=== PATIENT | female | born 1955 | race Caucasian/White ===

== ENCOUNTER 2017-09-26 11:32 | Outpatient (CLI) | payer MEDICARE, MEDICAID ==
--- NOTE | 2017-09-26 14:04 | PET ---
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 The patient is status post chemoradiation. She has received 3 cycles of weekly Cisplatin prior to it being disconti nued secondary to renal insufficiency. Brief interruption of radiation secondary to hospitalization. Exam is requested for restaging and spiculated nodule in the right lower lobe. Last chemotherapy w as in November 2016. TECHNIQUE: PET scanning with CT attenuation correction was performed from the base of the brain to the proximal thighs following the intravenous administration of 9 mCi [id number] in the right wrist. COMPARISON: None. FINDINGS: No hypermetabolic lymph nodes are seen in the neck, cyst, axilla, abdomen, pelvis, or inguinal region s. No hypermetabolic pulmonary nodules, liver, adrenal, or skeletal lesions are seen. There is a 6 mm parenchymal nodule in the right lower lobe which does not demonstrate abnormal FDG lo calization and has an SUV of 0.4. There is scarring in the left lower lung. There is physiologic activity in the GI and tracts, heart, and the visualized portions of the brai n. The CT scan used for attenuation correction demonstrates no evidence of pleural effusion or ascites. There is sigmoid diverticulosis. IMPRESSION: No evidence of metastatic disease. POS: [facility]
== END 2017-09-26 11:33 | disposition home or self-care (01) ==
LOC: PET 11:32
PROVIDERS: ATTEND Nurse Practitioner
DX: R91.1 Solitary pulmonary nodule (principal); Z85.44 Personal history of malignant neoplasm of other female genital organs
CPT/HCPCS: 78815; A9552

== ENCOUNTER 2018-09-18 15:15 | Outpatient (CLI) | payer MEDICARE ==
--- NOTE | 2018-09-18 15:41 | RAD ---
TWO VIEWS CHEST: Comparison: 08-05-18 FINDINGS: Two views of the chest shows a normal sized cardiomediastinal silhouette. Increased interstitial sierra ings are present. There is a small area of increased density in the mid left lung. This could represe nt atelectasis or an infiltrate. IMPRESSION: Left pulmonary atelectasis versus infiltrates. POS: [facility]
== END 2018-09-18 15:16 | disposition home or self-care (01) ==
LOC: RAD 15:15
PROVIDERS: ATTEND Internal Medicine Pulmonary Disease
DX: R06.00 Dyspnea, unspecified (principal)
CPT/HCPCS: 71046

== ENCOUNTER 2018-10-17 08:56 | Outpatient (CLI) | payer MEDICARE, MEDICAID ==
--- NOTE | 2018-10-18 10:46 | PFT ---
PATIENT HISTORY: HEIGHT: 64 IN WEIGHT: 183 SMOKER: NO HOW LON YR PACKS PER DAY: 1 PRODUCTIVE COUGH: LUNG DISEASE: PHYSICIAN INTERPRETATION FINAL REPORT: FEV1 0.56 liters 22% predicted. FVC is 1.33 liters 40% predicted. There is no significant improvement in FEV1 after Bronchodilatation. The FEV1/FVC ratio is 42. The DLCO is 5.88 25% Residual volume is 3.12, 163%. Total Lung capacity is normal. moderate obstructive defect IMPRESSION: This is a severe obstructive pulmonary impairment without evidence of reversibility. Severe air trapping is present. Gas exchange is severely compromised. MVV is appropriate for her decreased FEV1. 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
== END 2018-10-17 08:57 | disposition home or self-care (01) ==
LOC: CP 08:56
PROVIDERS: ATTEND Internal Medicine Pulmonary Disease
DX: J44.9 Chronic obstructive pulmonary disease, unspecified (principal)
CPT/HCPCS: 94060; 94727; 94729

== ENCOUNTER 2020-03-16 13:05 | Outpatient (CLI) | payer MEDICARE, MEDICAID ==
[~2020-03-16 13:05] MED LIST: Iopamidol 370 76% 100 ML VIAL ONE
--- NOTE | 2020-03-16 14:28 | CT ---
CT CHEST WITH CONTRAST CLINICAL INDICATION: Shortness of breath and history of COPD. History of cancer of the vulva. COMPARISON: CTA thorax on 08/04/2018 FINDINGS: Aorta: Vascular calcifications are seen in the aortic arch. Thoracic aorta is normal in caliber. Lungs: There are linear and patchy parenchymal densities seen in the region of the lingula with retic ulonodular densities also present in the peripheral aspect of the left upper lobe and right lower lobe. Again noted are linear densities at the left lung base suggesting scarring. Parenchymal lung ch anges are overall similar to the prior exam and likely to chronic lung changes. No pleural effusion is evident. There is evidence of bronchiectasis in the lower lobes bilaterally. Mediastinum: No enlarged lymph nodes are seen by CT size criteria. Thyroid gland: There has been interval development of a 1.3 cm hypodense nodule in the inferior aspec t left lobe of thyroid and thyroid isthmus with a few subcentimeter hypodense nodules seen in each lobe of the thyroid gland. Osseous structures: Degenerative changes are seen in the thoracic spine. No suspicious lytic or scler otic osseous lesions are identified. Chest wall: No abnormality visualized. Upper abdomen: There is diminished attenuation of the visualized liver likely reflective of fatty inf iltration. IMPRESSION: 1. Findings most suggestive of chronic lung changes predominantly on the left with linear areas of sc arring in the left upper and lower lobes which were also present on the prior exam. Minimal reticulonodular densities are seen in the left upper and right lower lobe which could be related to i nfectious or inflammatory process. 2. Bronchiectasis at each lung base. 3. Interval development of a dominant hypodense nodule inferior aspect left lobe of thyroid gland. [facility] ultrasound is recommended for further evaluation. 4. Fatty infiltration visualized liver.
== END 2020-03-16 13:06 | disposition home or self-care (01) ==
LOC: BICCT 13:05
PROVIDERS: ATTEND Obstetrics & Gynecology Gynecologic Oncology
DX: C51.9 Malignant neoplasm of vulva, unspecified (principal); J44.9 Chronic obstructive pulmonary disease, unspecified; I50.9 Heart failure, unspecified; J98.4 Other disorders of lung; J47.9 Bronchiectasis, uncomplicated; E04.1 Nontoxic single thyroid nodule; K76.0 Fatty (change of) liver, not elsewhere classified
CPT/HCPCS: 71260; 82565; Q9967

== ENCOUNTER 2020-05-28 10:09 | Outpatient (CLI) | payer MEDICARE, MEDICAID ==
--- NOTE | 2020-05-28 11:13 | MMO ---
Bilateral MAMMO Bilat Screen [facility]. CLINICAL HISTORY: Patient is 65 years old and is seen for screening. The patient has no family history of breast cancer. The patient has a history of vulva cancer. VIEWS: The views performed were: bilateral craniocaudal with tomosynthesis and bilateral mediolateral oblique with tomosynthesis. This study has been interpreted with the assistance of computer-aided detection. MAMMOGRAM FINDINGS: The breasts are heterogeneously dense, which could obscure a lesion on mammography. Finding 1: There are stable benign appearing calcifications seen in both breasts. Finding 2: There is an intramammary lymph node measuring 3 millimeters seen in the lower-inner region of the left breast. There are no suspicious masses, suspicious calcifications, or new areas of architectural distortion. IMPRESSION: THERE IS NO MAMMOGRAPHIC EVIDENCE OF MALIGNANCY. A ROUTINE FOLLOW-UP MAMMOGRAM IN 1 YEAR IS RECOMMENDED. THE RESULTS OF THIS EXAM WERE SENT TO THE PATIENT. ACR BI-RADS Category 2 - Benign finding MAMMOGRAPHY NOTE: 1. A negative mammogram report should not delay a biopsy if a dominant of clinically suspicious mass is present. 2. Approximately 10% to 15% of breast cancers are not detected by mammography. 3. Adenosis and dense breasts may obscure an underlying neoplasm. Reported by: EARNEST BARAJAS MD Electonically Signed: [id number]
--- NOTE | 2020-05-28 11:14 | BD ---
EXAM: Bone densitometry using DEXA HISTORY: 64 yo female. Screening for postmenopausal osteoporosis FINDINGS: L1--bone mineral density 0.905 g/sq cm; T score -0.8 ; Z score 0.7 L2--bone mineral density 0.918 g/sq cm; T score -1.0 ; Z score 0.6 L3--bone mineral density 0.781 g/sq cm; T score -2.8 ; Z score -1.1 L4--bone mineral density 0.598 g/sq cm; T score -4.2 ; Z score -2.4 Total L1-L4--bone mineral density 0.791 g/sq cm; T score -2.3 ; Z score -0.7 Left femoral neck--bone mineral density0.66; T score -2.0 ; Z score -0.6 Total proximal left femur--bone mineral density 0.949; T score 0.1 ; Z score 1. The 10 year fracture risk for a major osteoporotic fracture is 9.5% and for a hip fracture is 1.2%. IMPRESSION: Osteopenia
== END 2020-05-28 10:10 | disposition home or self-care (01) ==
LOC: BICMAMMO 10:09
PROVIDERS: ATTEND Family Medicine
DX: Z12.31 Encounter for screening mammogram for malignant neoplasm of breast (principal); Z13.820 Encounter for screening for osteoporosis; N95.9 Unspecified menopausal and perimenopausal disorder; M85.89 Other specified disorders of bone density and structure, multiple sites; Z85.44 Personal history of malignant neoplasm of other female genital organs
CPT/HCPCS: 77063; 77067; 77080

== ENCOUNTER 2021-04-16 10:55 | Outpatient (CLI) | payer MEDICARE | END 2021-04-16 10:56 | disposition home or self-care (01) | LOC: BICRAD 10:55 | PROVIDERS: ATTEND Internal Medicine Pulmonary Disease | DX: R06.00 Dyspnea, unspecified (principal); I70.90 Unspecified atherosclerosis | CPT/HCPCS: 71046 ==

== ENCOUNTER 2022-02-01 10:39 | Inpatient (IN) | payer MEDICARE ==
[2022-02-01] MEDS ORDERED: Azithromycin 500 MG VIAL ONE (10:47)
[2022-02-01] MEDS ORDERED: cefTRIAXone\\ROCEPHIN 2 GM VIAL ONE (10:47)
[2022-02-01] MEDS ORDERED: methylPREDNISolone Sod Succ/PF 125 MG/2 ML VIAL ONE (10:52)
[2022-02-01] MEDS ORDERED: Magnesium 2 GM/50 ML BAG (IN WATER) ONE (10:52)
[2022-02-01 11:25] LABS: #Lymphocytes 1.5 thou/uL (1.20-3.40); #Monocytes 1.5 thou/uL (0.11-0.59); #Neutrophils 11.7 thou/uL (1.40-6.50); %Basophils 0.1 % (0.0-1.0); %Eosinophils 0.2 % (0.0-10.0); %Lymphocytes 10.3 % (21.0-51.0); %Monocytes 9.8 % (0.0-10.0); %Neutrophils 79.5 % (42.0-75.0); Hemoglobin 12.8 g/dL (12.0-16.0); Mean Corpuscular HGB CONC 31.5 g/dL (32.0-36.0); Mean Corpuscular Hemoglobin 31.3 pg (27.0-31.0); Mean Corpuscular Volume 99.4 fL (78.0-98.0); Mean Platelet Volume 6.6 fL (7.4-10.4); Platelet Count 266 thou/uL (130-400); RBC Distribution Width 12.1 % (11.5-14.5); Red Blood Cell (RBC) Count 4.09 mill/uL (4.20-5.40); White Blood Cell (WBC) Count 14.8 thou/uL (4.8-10.8)
[2022-02-01 11:41] LABS: ALT (SGPT) 109 U/L (8-55); AST (SGOT) 47 U/L (5-34); Albumin 3.5 g/dL (3.4-4.8); Alkaline Phosphatase 75 U/L (40-110); BUN (Urea Nitrogen) 10 mg/dL (9.8-20.1); Bilirubin, Total 1.1 mg/dL (0.2-1.2); Calc. Creatinine Clearance 0 mL/min (70-130); Calcium 9.1 mg/dL (7.8-10.44); Globulin 2.9 g/dL (2.4-3.5); Glucose 156 mg/dL (80-115); INR-International Normal Ratio 1.1; PTT 30.6 sec (22.9-36.1); Protein, Total 6.4 g/dL (5.8-8.1); Prothrombin Time 13.8 sec (12.0-14.7)
[2022-02-01 11:50] LABS: Anion Gap 16 mmol/L (10-20); Carbon Dioxide 35 mmol/L (23-31); Chloride 95 mmol/L (98-107); Potassium 4.4 mmol/L (3.5-5.1); Sodium 142 mmol/L (136-145)
[2022-02-01] MEDS ORDERED: Albuterol Sulfate 2.5 mg/3 ml Neb ONE (12:40)
[2022-02-01 12:51] LABS: Actual Bicarbonate (HCO3a) 37.2 mEq/L (22-28); Analyzer IN Cardio ER; Base Excess (BEa) 6.3 mEq/L (-2.0 to +3.0); Calcium, Ionized (arterial) 1.16 mmol/L (1.12-1.30); Carboxyhemoglobin (COHb) 1.9 gm% (0.0-3.0); Hemoglobin (Hb) 13.6 g/dL (12.0-16.0); O2 Tension (PaO2), arterial 76.2 mmHg (> 80.0); Potassium - ABG Lab 4.17 mmol/L (3.70-5.30)
[2022-02-01 13:07] LABS: CO2 Tension 90.6 mmHg (35.0-45.0); Puncture Site RRA; pH, Arterial 7.23 (7.35-7.45)
[2022-02-01] MEDS ORDERED: Acetaminophen 650 MG Suppository PR PRN (13:12)
[2022-02-01] MEDS ORDERED: Senokot S 8.6-50 MG TAB PO PRN (13:12)
[2022-02-01] MEDS ORDERED: Acetaminophen 325 MG TAB PO PRN (13:12)
[2022-02-01] MEDS ORDERED: Ondansetron ODT 4 MG TAB PO PRN (13:12)
[2022-02-01] MEDS ORDERED: Ondansetron PF 4 MG/2 ML Vial IVP PRN (13:12)
[2022-02-01] MEDS ORDERED: Albuterol Sulfate 2.5 mg/3 ml Neb NEB PRN (13:12)
[2022-02-01] MEDS ORDERED: Bisacodyl 5 MG TAB PO PRN (13:12)
[2022-02-01 14:51] LABS: SARS-CoV-2 NAA Rapid Test Not Detected (NotDetected)
[2022-02-01] MEDS: Heparin 5,000 UNITS/ML VIAL SC SCH ×2 (15:25→19:53)
[2022-02-01 17:29] LABS: Actual Bicarbonate (HCO3v) 30 mEq/L (22-28); Analyzer IN Cardio ER; Base Excess 3.4 mEq/L (-2.0 to +3.0); Calcium, Ionized (venous) 1.01 mmol/L (1.16-1.32); Chloride (VBG) 98 mmol/L (98-106); Hemoglobin (Hb) 13.2 g/dL (11.7-16.0); Potassium (VBG) 4.01 mmol/L (3.70-5.30); Sodium 137.1 mmol/L (133-146); pH (venous) 7.36 (7.32-7.43)
[2022-02-01 17:38] LABS: Bacteria/HPF 4+ HPF (None Seen); Bilirubin Negative (Negative); Blood, Urine Trace (Negative); Clarity Turbid (Clear); Glucose, Urine (Dipstick) 30 mg/dL (Negative); Ketone, Urine Negative (Negative); Leukocyte Negative Leu/uL (Negative); Nitrite Negative (Negative); Protein, Urine (Dipstick) 30 mg/dL (Neg-Trace); Specific Gravity, Urine 1.015 (1.002-1.036); Squamous Epithelial 0-3 HPF (0-3); Urobilinogen 3 mg/dL (Less than 2); WBC/HPF 0-3 HPF (0-3)
[2022-02-01 18:17] VITALS: BMI 32.1
[2022-02-01] MEDS: guaiFENesin 200 MG TAB PO SCH ×2 (18:20→19:00)
[2022-02-01] MEDS ORDERED: Mometasone 200 MCG/Formoterol 5 MCG 120 PUFF INHALER INH SCH (18:30)
[2022-02-01] MEDS: methylPREDNISolone Sod Succ 40 MG VIAL IVP SCH (19:00)
[2022-02-01] MEDS ORDERED: ALPRAZolam 1 MG TAB PO SCH (19:30)
[2022-02-01] MEDS: Famotidine 20 MG TAB PO SCH (19:54)
[2022-02-02] MEDS: guaiFENesin 200 MG TAB PO SCH ×6 (00:14→20:09)
[2022-02-02] MEDS: methylPREDNISolone Sod Succ 40 MG VIAL IVP SCH ×3 (00:14→20:07)
[2022-02-02 03:59] LABS: #Monocytes 0.4 thou/uL (0.11-0.59); #Neutrophils 8.4 thou/uL (1.40-6.50); %Basophils 0.1 % (0.0-1.0); %Eosinophils 0.1 % (0.0-10.0); %Lymphocytes 9.9 % (21.0-51.0); %Monocytes 4.5 % (0.0-10.0); %Neutrophils 85.4 % (42.0-75.0); Hemoglobin 11.9 g/dL (12.0-16.0); Mean Corpuscular HGB CONC 31.8 g/dL (32.0-36.0); Mean Corpuscular Hemoglobin 31.6 pg (27.0-31.0); Mean Corpuscular Volume 99.4 fL (78.0-98.0); Mean Platelet Volume 6.6 fL (7.4-10.4); Platelet Count 236 thou/uL (130-400); RBC Distribution Width 11.9 % (11.5-14.5); Red Blood Cell (RBC) Count 3.76 mill/uL (4.20-5.40); White Blood Cell (WBC) Count 9.9 thou/uL (4.8-10.8)
[2022-02-02 04:24] LABS: Anion Gap 14 mmol/L (10-20); BUN (Urea Nitrogen) 13 mg/dL (9.8-20.1); Calc. Creatinine Clearance 91 mL/min (70-130); Calcium 9.3 mg/dL (7.8-10.44); Carbon Dioxide 36 mmol/L (23-31); Chloride 97 mmol/L (98-107); Glucose 172 mg/dL (80-115); Potassium 4.2 mmol/L (3.5-5.1); Sodium 143 mmol/L (136-145)
[2022-02-02] MEDS: Potassium Chloride 10 MEQ TAB PO SCH (08:39)
[2022-02-02] MEDS: Furosemide 20 MG TAB PO SCH (08:39)
[2022-02-02] MEDS: cefTRIAXone\\ROCEPHIN 1 GM in Sodium Chloride 0.9% 100 ML IVPB SCH (08:39)
[2022-02-02] MEDS: Famotidine 20 MG TAB PO SCH ×2 (08:39→20:07)
[2022-02-02] MEDS: Heparin 5,000 UNITS/ML VIAL SC SCH ×3 (08:39→20:08)
[2022-02-02] MEDS: Amlodipine 5 MG TAB PO SCH (08:39)
[2022-02-02] MEDS ORDERED: Non-Formulary Item 1 EACH (Budesonide-Formoterol [Symbicort 160-4.5] 160 MG/4.5 MG Aer) INH SCH (09:00)
[2022-02-02] MEDS: Azithromycin 500 MG in Sodium Chloride 0.9% 250 ML 250 ML IVPB SCH (12:47)
[2022-02-02] MEDS: ALPRAZolam 1 MG TAB PO PRN ×2 (12:48→20:07)
[2022-02-02] MEDS: Mometasone 200 MCG/Formoterol 5 MCG 120 PUFF INHALER INH SCH (18:30)
[2022-02-03] MEDS: guaiFENesin 200 MG TAB PO SCH ×7 (00:12→23:00)
[2022-02-03 03:38] LABS: #Lymphocytes 1.2 thou/uL (1.20-3.40); #Monocytes 0.5 thou/uL (0.11-0.59); #Neutrophils 10.2 thou/uL (1.40-6.50); %Eosinophils 0.1 % (0.0-10.0); %Lymphocytes 10.3 % (21.0-51.0); %Monocytes 4.1 % (0.0-10.0); %Neutrophils 85.5 % (42.0-75.0); Hemoglobin 12.3 g/dL (12.0-16.0); Mean Corpuscular Hemoglobin 30.9 pg (27.0-31.0); Mean Corpuscular Volume 99.8 fL (78.0-98.0); Mean Platelet Volume 6.7 fL (7.4-10.4); Platelet Count 307 thou/uL (130-400); RBC Distribution Width 12.1 % (11.5-14.5); Red Blood Cell (RBC) Count 3.96 mill/uL (4.20-5.40)
[2022-02-03 03:58] LABS: Anion Gap 14 mmol/L (10-20); BUN (Urea Nitrogen) 21 mg/dL (9.8-20.1); Calc. Creatinine Clearance 83 mL/min (70-130); Calcium 9.3 mg/dL (7.8-10.44); Carbon Dioxide 37 mmol/L (23-31); Chloride 94 mmol/L (98-107); Glucose 209 mg/dL (80-115); Potassium 4.1 mmol/L (3.5-5.1); Sodium 141 mmol/L (136-145)
[2022-02-03] MEDS: Mometasone 200 MCG/Formoterol 5 MCG 120 PUFF INHALER INH SCH ×2 (06:45→19:39)
[2022-02-03] MEDS: cefTRIAXone\\ROCEPHIN 1 GM in Sodium Chloride 0.9% 100 ML IVPB SCH (09:07)
[2022-02-03] MEDS: Furosemide 20 MG TAB PO SCH (09:07)
[2022-02-03] MEDS: Famotidine 20 MG TAB PO SCH ×2 (09:07→21:12)
[2022-02-03] MEDS: Potassium Chloride 10 MEQ TAB PO SCH (09:07)
[2022-02-03] MEDS: Amlodipine 5 MG TAB PO SCH (09:07)
[2022-02-03] MEDS: Heparin 5,000 UNITS/ML VIAL SC SCH ×3 (09:08→21:11)
[2022-02-03] MEDS: methylPREDNISolone Sod Succ 40 MG VIAL IVP SCH ×2 (09:08→21:12)
[2022-02-03] MEDS: ALPRAZolam 1 MG TAB PO PRN ×2 (09:09→19:01)
[2022-02-03] MEDS: Azithromycin 500 MG in Sodium Chloride 0.9% 250 ML 250 ML IVPB SCH (12:17)
[2022-02-04] MEDS: guaiFENesin 200 MG TAB PO SCH ×2 (02:01→06:53)
[2022-02-04 06:02] LABS: BUN (Urea Nitrogen) 21 mg/dL (9.8-20.1); Calc. Creatinine Clearance 99 mL/min (70-130)
[2022-02-04 06:03] LABS: Glucose 121 mg/dL (80-115)
[2022-02-04 06:12] LABS: Anion Gap 15 mmol/L (10-20); Carbon Dioxide 38 mmol/L (23-31); Chloride 94 mmol/L (98-107); Potassium 4.3 mmol/L (3.5-5.1); Sodium 143 mmol/L (136-145)
[2022-02-04 06:21] LABS: Band 2 % (5-11); Hemoglobin 12.4 g/dL (12.0-16.0); Hypochromia SLIGHT = 6-15 cells (100X) (0-5/hpf); Lymphocytes 17 % (21-51); MDiff Complete? YES; Macrocytosis SLIGHT = 6-15 cells (100X) (0-5/hpf); Mean Corpuscular HGB CONC 31.3 g/dL (32.0-36.0); Mean Corpuscular Hemoglobin 30.9 pg (27.0-31.0); Mean Corpuscular Volume 98.6 fL (78.0-98.0); Mean Platelet Volume 6.5 fL (7.4-10.4); Monocytes 4 % (0-10); Myelocyte 1 % (0-0); Neutrophil 76 % (42-75); Ovalocytes SLIGHT = 2-5 cells (100X) (0-1/hpf); Platelet Count 347 thou/uL (130-400); Platelet Morphology Comment Appears Adequate; Polychromasia SLIGHT = 2-3 cells (100X) (0-2/hpf); RBC Distribution Width 11.9 % (11.5-14.5); Red Blood Cell (RBC) Count 4.02 mill/uL (4.20-5.40); Stomatocytes SLIGHT = 2-5 cells (100X) (0-1/hpf); White Blood Cell (WBC) Count 14.3 thou/uL (4.8-10.8)
[2022-02-04] MEDS: Mometasone 200 MCG/Formoterol 5 MCG 120 PUFF INHALER INH SCH (07:45)
[2022-02-04] MEDS ORDERED: Potassium Chloride 10 MEQ TAB PO SCH (08:00)
[2022-02-04] MEDS: ALPRAZolam 1 MG TAB PO PRN (08:59)
[2022-02-04] MEDS: Famotidine 20 MG TAB PO SCH (08:59)
[2022-02-04] MEDS: Furosemide 20 MG TAB PO SCH (08:59)
[2022-02-04] MEDS: Amlodipine 5 MG TAB PO SCH (08:59)
[2022-02-04] MEDS ORDERED: Azithromycin 250 MG TAB PO SCH (09:00)
[2022-02-04] MEDS: Heparin 5,000 UNITS/ML VIAL SC SCH (09:00)
[2022-02-04] MEDS: methylPREDNISolone Sod Succ 40 MG VIAL IVP SCH (09:00)
[2022-02-04] MEDS: cefTRIAXone\\ROCEPHIN 1 GM in Sodium Chloride 0.9% 100 ML IVPB SCH (09:00)
[2022-02-04 09:10] VITALS: TEMP 98
[2022-02-04 12:43] VITALS: BP 152/92
[2022-02-04] MEDS ORDERED: Cefuroxime Axetil 250 MG TAB PO SCH (21:00)
[2022-02-05] MEDS ORDERED: predniSONE 20 MG TAB PO SCH (08:00)
== END 2022-02-04 13:24 | disposition home or self-care (01) | DRG 871 ==
LOC: ERS 10:39 → ERHOLD 13:13 → IMCU/EMU 18:21 → MSONC 02-03 13:21
PROVIDERS: ADMIT Internal Medicine; ATTEND Internal Medicine
PROC: 3E03329 Introduction of Other Anti-infective into Peripheral Vein, Percutaneous Approach (ICD-10-PCS; principal; 2022-02-01)
PROC: 5A09457 Assistance with Respiratory Ventilation, 24-96 Consecutive Hours, Continuous Positive Airway Pressure (ICD-10-PCS; 2022-02-01)
DX: A41.9 Sepsis, unspecified organism (principal); J96.21 Acute and chronic respiratory failure with hypoxia; J96.22 Acute and chronic respiratory failure with hypercapnia; J44.1 Chronic obstructive pulmonary disease with (acute) exacerbation; I50.32 Chronic diastolic (congestive) heart failure; I11.0 Hypertensive heart disease with heart failure; Z20.822 Contact with and (suspected) exposure to COVID-19; E78.5 Hyperlipidemia, unspecified; C52 Malignant neoplasm of vagina; F41.1 Generalized anxiety disorder; E66.9 Obesity, unspecified; Z99.81 Dependence on supplemental oxygen; Z79.51 Long term (current) use of inhaled steroids; Z79.52 Long term (current) use of systemic steroids; Z79.899 Other long term (current) drug therapy; Z90.49 Acquired absence of other specified parts of digestive tract; Z98.51 Tubal ligation status; Z87.891 Personal history of nicotine dependence; Z68.31 Body mass index [BMI] 31.0-31.9, adult
CPT/HCPCS: 36415; 36416; 36600; 71045; 80048; 80053; 81003; 81015; 82805; 83605; 83880; 84145; 84484; 85025; 85610; 85730; 87040; 87070; 87086; 87205; 87633; 93005; 94640; 94644; 94660; 94664; 94760; 96365; 96366; 96368; 96375; J0456; J0696; J1644; J2920; J2930; J3475; J3490; J7050; J7611; J7620

== ENCOUNTER 2022-10-11 11:26 | Outpatient (CLI) | payer MEDICARE, MEDICAID | END 2022-10-11 11:27 | disposition home or self-care (01) | LOC: RAD 11:26 | PROVIDERS: ATTEND Internal Medicine Critical Care Medicine | DX: R06.00 Dyspnea, unspecified (principal) | CPT/HCPCS: 71046 ==

== ENCOUNTER 2023-02-08 07:19 | Inpatient (IN) | payer MEDICARE ==
[2023-02-08] MEDS ORDERED: Ipratropium Bromide 2.5 ml Neb ONE (08:01)
[2023-02-08] MEDS ORDERED: methylPREDNISolone Sod Succ/PF 125 MG/2 ML VIAL ONE (08:05)
[2023-02-08] MEDS ORDERED: Magnesium 2 GM/50 ML BAG (IN WATER) ONE (08:06)
[2023-02-08] MEDS ORDERED: Cefepime 2 GM VIAL ONE (08:06)
[2023-02-08 08:11] LABS: Actual Bicarbonate (HCO3a) 44.8 mEq/L (22-28); Analyzer IN Cardio ER; Base Excess (BEa) 16.3 mEq/L (-2.0 to +3.0); Calcium, Ionized (arterial) 1.11 mmol/L (1.12-1.30); Hematocrit-ABG 42 % (36.0-47.0); Hemoglobin (Hb) 14.3 g/dL (12.0-16.0); Potassium - ABG Lab 3.51 mmol/L (3.70-5.30); pH, Arterial 7.411 (7.35-7.45)
[2023-02-08 08:16] LABS: Puncture Site RRA
[2023-02-08 08:32] LABS: Hemoglobin 14.6 g/dL (12.0-16.0); Mean Corpuscular HGB CONC 30.9 g/dL (32.0-36.0); Mean Corpuscular Hemoglobin 30.7 pg (27.0-31.0); Mean Corpuscular Volume 99.2 fl (78.0-98.0); Mean Platelet Volume 9.2 fL (7.4-10.4); Platelet Count 235 10x3/uL (130-400); RBC Distribution Width 12.7 % (11.5-14.5); Red Blood Cell (RBC) Count 4.76 mill/uL (4.20-5.40); White Blood Cell (WBC) Count 25.4 10x3/uL (4.8-10.8)
[2023-02-08 08:33] LABS: Delete Auto Diff?? YES; Manual Diff?? YES
[2023-02-08 08:48] LABS: Prothrombin Time 13.2 sec (12.0-14.7)
[2023-02-08 08:49] LABS: PTT 23.6 sec (22.9-36.1)
[2023-02-08 08:54] LABS: ALT (SGPT) 37 U/L (8-55); AST (SGOT) 31 U/L (5-34); Albumin 3.7 g/dL (3.4-4.8); Alkaline Phosphatase 71 U/L (40-110); BUN (Urea Nitrogen) 19 mg/dL (9.8-20.1); Band 6 % (5-11); Bilirubin, Total 0.6 mg/dL (0.2-1.2); CK (CPK) 25 U/L (29-168); Calc. Creatinine Clearance 0 mL/min (70-130); CellaVision Operator ID LAB.GE; Estimated GFR 87; Globulin 3.7 g/dL (2.4-3.5); Glucose 121 mg/dL (80-115); Lipase 211 U/L (8-78); Lymphocytes 3 % (21-51); Metamyelocyte 4 % (0-0); Myelocyte 2 % (0-0); Neutrophil 79 % (42-75); Platelet Adequacy Comment Platelets Normal; Polychromasia SLIGHT = 2-3 cells HPF (0-2); Protein, Total 7.4 g/dL (5.8-8.1); Reactive Lymphocytes 6 % (0-10); Total Cell Count 100; Toxic Granulation SLIGHT
[2023-02-08 09:05] LABS: Anion Gap 20 mmol/L (10-20); Carbon Dioxide 41 mmol/L (23-31); Chloride 89 mmol/L (98-107); Potassium 3.7 mmol/L (3.5-5.1); Sodium 146 mmol/L (136-145)
[2023-02-08] MEDS ORDERED: Vancomycin 1 GM/200 ML (FROZEN) BAG ONE (09:31)
[2023-02-08] MEDS ORDERED: Ondansetron ODT 4 MG TAB PO PRN (10:03)
[2023-02-08] MEDS ORDERED: Acetaminophen 325 MG TAB PO PRN (10:03)
[2023-02-08 11:53] LABS: Troponin I Less than 0.010 ng/mL (< 0.028)
[2023-02-08 14:16] VITALS: BMI 29.0
[2023-02-08] MEDS ORDERED: Furosemide 20 MG/2 ML VIAL SLOW IVP SCH (14:30)
[2023-02-08 14:40] LABS: Magnesium 2.3 mg/dL (1.6-2.6); Phosphorus 3.2 mg/dL (2.3-4.7)
[2023-02-08] MEDS: Ipratropium/Albuterol 3 ML NEB NEB SCH ×3 (14:53→23:51)
[2023-02-08] MEDS ORDERED: ALPRAZolam 1 MG TAB PO SCH ×2 (16:20→21:00)
[2023-02-08 16:57] LABS: Troponin I Less than 0.010 ng/mL (< 0.028)
[2023-02-08] MEDS: Mometasone 200 MCG/Formoterol 5 MCG 120 PUFF INHALER INH SCH (18:50)
[2023-02-08] MEDS: Famotidine 20 MG TAB PO SCH (20:19)
[2023-02-08] MEDS: Cefepime 2 GM in Sodium Chloride 0.9% 100 ML IVPB SCH (20:20)
[2023-02-08] MEDS: methylPREDNISolone Sod Succ 40 MG VIAL IVP SCH (20:20)
[2023-02-09 04:44] LABS: Hemoglobin 12.2 g/dL (12.0-16.0); Mean Corpuscular HGB CONC 30.6 g/dL (32.0-36.0); Mean Corpuscular Hemoglobin 29.7 pg (27.0-31.0); Mean Corpuscular Volume 97.1 fl (78.0-98.0); Mean Platelet Volume 9.4 fL (7.4-10.4); Platelet Count 221 10x3/uL (130-400); RBC Distribution Width 12.7 % (11.5-14.5); Red Blood Cell (RBC) Count 4.11 mill/uL (4.20-5.40)
[2023-02-09 04:49] LABS: Delete Auto Diff?? YES
[2023-02-09] MEDS: ALPRAZolam 1 MG TAB PO SCH ×2 (05:45→21:17)
[2023-02-09 05:55] LABS: ALT (SGPT) 32 U/L (8-55); AST (SGOT) 22 U/L (5-34); Albumin 3.2 g/dL (3.4-4.8); Alkaline Phosphatase 56 U/L (40-110); BUN (Urea Nitrogen) 18 mg/dL (9.8-20.1); Bilirubin, Total 0.4 mg/dL (0.2-1.2); Calc. Creatinine Clearance 97 mL/min (70-130); Calcium 9.1 mg/dL (7.8-10.44); Estimated GFR 96; Glucose 130 mg/dL (80-115); Protein, Total 6.2 g/dL (5.8-8.1)
[2023-02-09 06:06] LABS: Chloride 96 mmol/L (98-107); Sodium 145 mmol/L (136-145)
[2023-02-09 06:09] LABS: Anion Gap 19 mmol/L (10-20); Carbon Dioxide 34 mmol/L (23-31)
[2023-02-09 07:19] LABS: CO2 Tension 72.2 mmHg (35.0-45.0); O2 Tension (PaO2), arterial 53.5 mmHg (> 80.0)
[2023-02-09] MEDS: Mometasone 200 MCG/Formoterol 5 MCG 120 PUFF INHALER INH SCH ×2 (07:34→18:39)
[2023-02-09] MEDS: Ipratropium/Albuterol 3 ML NEB NEB SCH ×4 (07:35→22:50)
[2023-02-09] MEDS ORDERED: Vancomycin 1.5 GRAM/300 ML BAG 1.5 GM in Premix Bag 1 BAG IVPB SCH (09:00)
[2023-02-09] MEDS: Cefepime 2 GM in Sodium Chloride 0.9% 100 ML IVPB SCH (09:38)
[2023-02-09] MEDS: Furosemide 20 MG/2 ML VIAL SLOW IVP SCH (09:39)
[2023-02-09] MEDS: Famotidine 20 MG TAB PO SCH ×2 (09:39→21:17)
[2023-02-09] MEDS: methylPREDNISolone Sod Succ 40 MG VIAL IVP SCH (09:39)
[2023-02-09] MEDS ORDERED: ALPRAZolam 1 MG TAB PO SCH (15:30)
[2023-02-09] MEDS: Cefuroxime 250 MG TAB PO SCH (21:17)
[2023-02-10 06:22] LABS: #Basophils 0.1 thou/uL (0.0-0.2); #Eosinphils 0.1 thou/uL (0.0-0.7); #Monocytes 0.5 thou/uL (0.11-0.59); #Neutrophils 8.8 thou/uL (1.40-6.50); %Basophils 0.4 % (0.0-1.0); %Eosinophils 0.8 % (0.0-10.0); %Lymphocytes 15.2 % (21.0-51.0); %Monocytes 4.4 % (0.0-10.0); %Neutrophils 74.7 % (42.0-75.0); Hemoglobin 12.8 g/dL (12.0-16.0); Mean Corpuscular HGB CONC 30.5 g/dL (32.0-36.0); Mean Corpuscular Hemoglobin 29.8 pg (27.0-31.0); Mean Corpuscular Volume 97.7 fl (78.0-98.0); Mean Platelet Volume 9.3 fL (7.4-10.4); Platelet Count 211 10x3/uL (130-400); RBC Distribution Width 13.1 % (11.5-14.5); Red Blood Cell (RBC) Count 4.29 mill/uL (4.20-5.40); White Blood Cell (WBC) Count 11.8 10x3/uL (4.8-10.8)
[2023-02-10 06:27] LABS: BUN (Urea Nitrogen) 17 mg/dL (9.8-20.1); Calc. Creatinine Clearance 97 mL/min (70-130); Calcium 9.2 mg/dL (7.8-10.44); Estimated GFR 96; Glucose 100 mg/dL (80-115)
[2023-02-10 06:35] LABS: Anion Gap 17 mmol/L (10-20); Carbon Dioxide 36 mmol/L (23-31); Chloride 94 mmol/L (98-107); Potassium 3.6 mmol/L (3.5-5.1); Sodium 143 mmol/L (136-145)
[2023-02-10] MEDS: Ipratropium/Albuterol 3 ML NEB NEB SCH ×4 (07:17→23:03)
[2023-02-10] MEDS: Mometasone 200 MCG/Formoterol 5 MCG 120 PUFF INHALER INH SCH ×2 (07:17→18:42)
[2023-02-10] MEDS: predniSONE 20 MG TAB PO SCH (08:54)
[2023-02-10] MEDS: ALPRAZolam 1 MG TAB PO SCH ×2 (08:54→20:05)
[2023-02-10] MEDS: Furosemide 20 MG/2 ML VIAL SLOW IVP SCH (08:55)
[2023-02-10] MEDS: Famotidine 20 MG TAB PO SCH ×2 (08:55→20:05)
[2023-02-10] MEDS: Cefuroxime 250 MG TAB PO SCH ×2 (08:59→20:05)
[2023-02-10] MEDS ORDERED: ALPRAZolam 1 MG TAB PO PRN (12:00)
[2023-02-11 04:29] LABS: #Eosinphils 0.1 thou/uL (0.0-0.7); #Monocytes 0.6 thou/uL (0.11-0.59); #Neutrophils 6.9 thou/uL (1.40-6.50); %Basophils 0.1 % (0.0-1.0); %Eosinophils 0.7 % (0.0-10.0); %Lymphocytes 17.4 % (21.0-51.0); %Monocytes 6.3 % (0.0-10.0); %Neutrophils 73.4 % (42.0-75.0); Hemoglobin 12.4 g/dL (12.0-16.0); Mean Corpuscular HGB CONC 31.2 g/dL (32.0-36.0); Mean Corpuscular Hemoglobin 30.2 pg (27.0-31.0); Mean Corpuscular Volume 97.1 fl (78.0-98.0); Platelet Count 211 10x3/uL (130-400); RBC Distribution Width 12.9 % (11.5-14.5); White Blood Cell (WBC) Count 9.4 10x3/uL (4.8-10.8)
[2023-02-11 04:54] LABS: BUN (Urea Nitrogen) 16 mg/dL (9.8-20.1); Calc. Creatinine Clearance 94 mL/min (70-130); Estimated GFR 94; Glucose 102 mg/dL (80-115)
[2023-02-11 05:03] LABS: Anion Gap 18 mmol/L (10-20); Carbon Dioxide 34 mmol/L (23-31); Chloride 94 mmol/L (98-107); Potassium 3.3 mmol/L (3.5-5.1); Sodium 143 mmol/L (136-145)
[2023-02-11] MEDS: Ipratropium/Albuterol 3 ML NEB NEB SCH (07:13)
[2023-02-11] MEDS: Mometasone 200 MCG/Formoterol 5 MCG 120 PUFF INHALER INH SCH (07:13)
[2023-02-11] MEDS ORDERED: Potassium Bicarbonate/Cit Ac 20 MEQ TAB PO SCH (08:30)
[2023-02-11] MEDS: Famotidine 20 MG TAB PO SCH (09:02)
[2023-02-11] MEDS: Furosemide 20 MG/2 ML VIAL SLOW IVP SCH (09:03)
[2023-02-11] MEDS: ALPRAZolam 1 MG TAB PO SCH (09:03)
[2023-02-11] MEDS: predniSONE 20 MG TAB PO SCH (09:03)
[2023-02-11] MEDS: Cefuroxime 250 MG TAB PO SCH (10:45)
[2023-02-11 14:01] VITALS: BP 133/85; TEMP 98.5
== END 2023-02-11 12:50 | disposition home or self-care (01) | DRG 189 ==
LOC: ERS 07:19 → ERHOLD 10:30 → 2NO 15:06
PROVIDERS: ADMIT Internal Medicine; ATTEND Hospitalist
PROC: 4A033R1 Measurement of Arterial Saturation, Peripheral, Percutaneous Approach (ICD-10-PCS; 2023-02-08)
PROC: 5A09357 Assistance with Respiratory Ventilation, Less than 24 Consecutive Hours, Continuous Positive Airway Pressure (ICD-10-PCS; principal; 2023-02-09)
DX: J96.21 Acute and chronic respiratory failure with hypoxia (principal); J44.1 Chronic obstructive pulmonary disease with (acute) exacerbation; I50.32 Chronic diastolic (congestive) heart failure; I11.0 Hypertensive heart disease with heart failure; E78.5 Hyperlipidemia, unspecified; J96.22 Acute and chronic respiratory failure with hypercapnia; Z98.51 Tubal ligation status; Z90.49 Acquired absence of other specified parts of digestive tract; Z87.891 Personal history of nicotine dependence
CPT/HCPCS: 36415; 36600; 71045; 80048; 80053; 82550; 82805; 83605; 83690; 83735; 83880; 84100; 84145; 84484; 85025; 85610; 85730; 87040; 87070; 87205; 93005; 93306; 94640; 94644; 94660; 94760; 96365; 96366; 96367; 96375; J0692; J1650; J1940; J2920; J2930; J3370; J3370-JW; J3475; J3490; J7512; J7611; J7620

== ENCOUNTER 2023-05-04 10:11 | Outpatient (CLI) | payer MEDICARE, MEDICAID | END 2023-05-04 10:12 | disposition home or self-care (01) | LOC: RAD 10:11 | PROVIDERS: ATTEND Internal Medicine Critical Care Medicine | DX: R06.00 Dyspnea, unspecified (principal); R91.8 Other nonspecific abnormal finding of lung field | CPT/HCPCS: 71046 ==

== ENCOUNTER 2023-12-18 09:22 | Inpatient (IN) | payer MEDICARE ==
[2023-12-18 10:25] LABS: #Basophils Less than 0.03 10x3/uL (0.0-0.2); %Basophils 0.2 % (0.0-1.0); %Eosinophils 2.2 % (0.0-10.0); %Lymphocytes 17.9 % (21.0-51.0); %Monocytes 6.1 % (0.0-10.0); %Neutrophils 73.4 % (42.0-75.0); Hematocrit 42.1 % (36.0-47.0); Hemoglobin 12.9 g/dL (12.0-16.0); Mean Corpuscular HGB CONC 30.6 g/dL (32.0-36.0); Mean Corpuscular Hemoglobin 30.9 pg (27.0-31.0); Mean Platelet Volume 8.9 fL (7.4-10.4); Platelet Count 199 10x3/uL (130-400); RBC Distribution Width 12.3 % (11.5-14.5); Red Blood Cell (RBC) Count 4.17 mill/uL (4.20-5.40)
[2023-12-18 10:32] LABS: Actual Bicarbonate (HCO3a) 42.3 mEq/L (22-28); Analyzer IN Cardio ER; Base Excess (BEa) 12.2 mEq/L (-2.0 to +3.0); Calcium, Ionized (arterial) 1.21 mmol/L (1.12-1.30); Carboxyhemoglobin (COHb) 1.2 gm% (0.0-3.0); Hematocrit-ABG 39 % (36.0-47.0); Hemoglobin (Hb) 13.1 g/dL (12.0-16.0); O2 Tension (PaO2), arterial 71.6 mmHg (> 80.0); Potassium - ABG Lab 3.93 mmol/L (3.70-5.30); pH, Arterial 7.301 (7.35-7.45)
[2023-12-18 10:33] LABS: CO2 Tension 87.8 mmHg (35.0-45.0); Puncture Site Yes
[2023-12-18 10:38] LABS: Globulin 3.7 g/dL (2.4-3.5)
[2023-12-18 10:42] LABS: ALT (SGPT) 20 U/L (8-55); AST (SGOT) 16 U/L (5-34); Albumin 3.2 g/dL (3.4-4.8); Alkaline Phosphatase 52 U/L (40-110); Anion Gap 15 mmol/L (10-20); BUN (Urea Nitrogen) 12 mg/dL (9.8-20.1); Bilirubin, Total 0.5 mg/dL (0.2-1.2); Calc. Creatinine Clearance 0 mL/min (70-130); Calcium 9.9 mg/dL (7.8-10.44); Carbon Dioxide 43 mmol/L (23-31); Chloride 90 mmol/L (98-107); Estimated GFR 97; Glucose 146 mg/dL (80-115); Potassium 4.1 mmol/L (3.5-5.1); Protein, Total 6.9 g/dL (5.8-8.1); Sodium 144 mmol/L (136-145)
[2023-12-18] MEDS ORDERED: LevoFLOXacin 750 mg/D5W 150 ml Premix Bag ONE (10:45)
[2023-12-18] MEDS ORDERED: Dexamethasone 10 MG/ML VIAL ONE (10:45)
[2023-12-18] MEDS ORDERED: HYDROcodone/Acetaminophen 10/325 mg Tablet ONE (10:45)
[2023-12-18] MEDS ORDERED: Magnesium 2 GM/50 ML BAG (IN WATER) ONE (10:45)
[2023-12-18] MEDS ORDERED: Albuterol 2.5 MG (3 mL) NEB ONE (10:45)
[2023-12-18] MEDS ORDERED: Ipratropium/Albuterol 3 ML NEB ONE (10:45)
[2023-12-18 11:47] LABS: Troponin I 0.029 ng/mL (< 0.028)
[2023-12-18] MEDS ORDERED: Clindamycin/D5W 900 MG in Premix 1 BAG IVPB SCH (12:00)
[2023-12-18] MEDS ORDERED: Ipratropium/Albuterol 3 ML NEB NEB PRN (12:53)
[2023-12-18] MEDS ORDERED: Acetaminophen 325 MG TAB PO PRN (12:53)
[2023-12-18] MEDS ORDERED: Albuterol 2.5 MG (3 mL) NEB NEB PRN (12:53)
[2023-12-18 13:35] VITALS: BMI 31.2
[2023-12-18] MEDS: ALPRAZolam 1 MG TAB PO PRN (18:28)
[2023-12-18] MEDS: Senokot S 8.6-50 MG TAB PO SCH (20:01)
[2023-12-18] MEDS: AcetaZOLAMIDE 250 MG TAB PO SCH (20:01)
[2023-12-18] MEDS: Montelukast Sodium 10 mg Tablet PO SCH (20:01)
[2023-12-18] MEDS: Mometasone 200 MCG/Formoterol 5 MCG 120 PUFF INHALER INH SCH (20:30)
[2023-12-19] MEDS ORDERED: Furosemide 20 MG TAB PO SCH (09:00)
[2023-12-19 09:12] LABS: Anion Gap 13 mmol/L (10-20); BUN (Urea Nitrogen) 17 mg/dL (9.8-20.1); Calc. Creatinine Clearance 86 mL/min (70-130); Calcium 9.8 mg/dL (7.8-10.44); Carbon Dioxide 41 mmol/L (23-31); Chloride 92 mmol/L (98-107); Estimated GFR 78; Glucose 155 mg/dL (80-115); Potassium 3.6 mmol/L (3.5-5.1); Sodium 142 mmol/L (136-145)
[2023-12-19] MEDS: Loratadine 10 MG TAB PO SCH (09:21)
[2023-12-19] MEDS: Amlodipine 5 MG TAB PO SCH (09:21)
[2023-12-19] MEDS: predniSONE 20 MG TAB PO SCH (09:21)
[2023-12-19] MEDS: Enoxaparin 40 MG (0.4 mL) SYRINGE SC SCH (09:21)
[2023-12-19] MEDS: LevoFLOXacin 750 MG TAB PO SCH (09:21)
[2023-12-19] MEDS: Polyethylene Glycol 3350 17 GM Packet PO SCH (09:21)
[2023-12-19 09:50] LABS: #Basophils Less than 0.03 10x3/uL (0.0-0.2); #Eosinphils Less than 0.03 10x3/uL (0.0-0.7); %Eosinophils 0.1 % (0.0-10.0); %Lymphocytes 17.6 % (21.0-51.0); %Monocytes 6.9 % (0.0-10.0); %Neutrophils 75.1 % (42.0-75.0); Hematocrit 37.6 % (36.0-47.0); Hemoglobin 11.5 g/dL (12.0-16.0); Mean Corpuscular HGB CONC 30.6 g/dL (32.0-36.0); Mean Corpuscular Hemoglobin 30.1 pg (27.0-31.0); Mean Corpuscular Volume 98.4 fL (78.0-98.0); Mean Platelet Volume 9.5 fL (7.4-10.4); Platelet Count 227 10x3/uL (130-400); RBC Distribution Width 12.2 % (11.5-14.5); Red Blood Cell (RBC) Count 3.82 mill/uL (4.20-5.40)
[2023-12-20 08:21] VITALS: BMI 31.0
[2023-12-20 10:09] VITALS: BP 142/87
[2023-12-20 12:16] VITALS: TEMP 97.4
== END 2023-12-20 14:40 | disposition home health service (06) | DRG 189 ==
LOC: ERS 09:22 → IMCU/EMU 12:52
PROVIDERS: ADMIT Family Medicine; ATTEND Internal Medicine
PROC: 4A033R1 Measurement of Arterial Saturation, Peripheral, Percutaneous Approach (ICD-10-PCS; principal; 2023-12-18)
PROC: 5A09357 Assistance with Respiratory Ventilation, Less than 24 Consecutive Hours, Continuous Positive Airway Pressure (ICD-10-PCS; 2023-12-19)
DX: J96.22 Acute and chronic respiratory failure with hypercapnia (principal); E87.3 Alkalosis; J44.1 Chronic obstructive pulmonary disease with (acute) exacerbation; I50.32 Chronic diastolic (congestive) heart failure; I11.0 Hypertensive heart disease with heart failure; J96.11 Chronic respiratory failure with hypoxia; E78.5 Hyperlipidemia, unspecified; K59.00 Constipation, unspecified; F39 Unspecified mood [affective] disorder; Z90.49 Acquired absence of other specified parts of digestive tract; Z98.51 Tubal ligation status; Z85.44 Personal history of malignant neoplasm of other female genital organs; S51.812A Laceration without foreign body of left forearm, initial encounter; I50.9 Heart failure, unspecified; J44.9 Chronic obstructive pulmonary disease, unspecified; W18.11XA Fall from or off toilet without subsequent striking against object, initial encounter; Z23 Encounter for immunization; Z87.891 Personal history of nicotine dependence; Z79.899 Other long term (current) drug therapy
CPT/HCPCS: 12034; 36415; 71045; 80048; 80053; 82805; 83605; 83880; 84484; 85025; 87040; 90471; 90715; 93005; 94660; 97139; J1100; J1650; J1956; J3475; J3490; J7512; J7611; J7620

== ENCOUNTER 2023-12-27 13:17 | Emergency (ER) | payer MEDICARE ==
[2023-12-27] MEDS ORDERED: Bacitracin 1 PK ONE (14:43)
== END 2023-12-27 15:27 | disposition home or self-care (01) ==
LOC: ERS 13:17
DX: R09.02 Hypoxemia (principal); Z48.00 Encounter for change or removal of nonsurgical wound dressing; I11.0 Hypertensive heart disease with heart failure; I50.9 Heart failure, unspecified; J44.9 Chronic obstructive pulmonary disease, unspecified; Z87.891 Personal history of nicotine dependence; Z79.899 Other long term (current) drug therapy
CPT/HCPCS: 99284

== ENCOUNTER 2024-01-03 10:59 | Inpatient (IN) | payer MEDICARE ==
[2024-01-03] MEDS ORDERED: Iopamidol-370 76% 500 ML MDV (1 ML CHARGE) ONE (11:07)
[2024-01-03] MEDS ORDERED: methylPREDNISolone Sod Succ/PF 125 MG/2 ML VIAL ONE (11:58)
[2024-01-03 12:07] LABS: #Basophils Less than 0.03 10x3/uL (0.0-0.2); %Basophils 0.2 % (0.0-1.0); %Eosinophils 1.3 % (0.0-10.0); %Lymphocytes 9.5 % (21.0-51.0); %Monocytes 5.1 % (0.0-10.0); %Neutrophils 83.1 % (42.0-75.0); Hematocrit 40.5 % (36.0-47.0); Hemoglobin 12.3 g/dL (12.0-16.0); Mean Corpuscular HGB CONC 30.4 g/dL (32.0-36.0); Mean Corpuscular Hemoglobin 30.9 pg (27.0-31.0); Mean Corpuscular Volume 101.8 fL (78.0-98.0); Mean Platelet Volume 9.7 fL (7.4-10.4); Platelet Count 151 10x3/uL (130-400); RBC Distribution Width 13.2 % (11.5-14.5); Red Blood Cell (RBC) Count 3.98 mill/uL (4.20-5.40)
[2024-01-03 12:07] LABS: Base Excess 16.8 mEq/L (-2.0 to +3.0); Calcium, Ionized (venous) 1.12 mmol/L (1.16-1.32); Chloride (VBG) 90 mmol/L (98-106); Hematocrit-VBG 39 % (36.0-47.0); Hemoglobin (Hb) 13.2 g/dL (11.7-16.1); Sodium 140 mmol/L (133-146); pH (venous) 7.299 (7.32-7.43)
[2024-01-03] MEDS ORDERED: Ipratropium/Albuterol 3 ML NEB ONE (12:27)
[2024-01-03 12:28] LABS: Troponin I 0.011 ng/mL (< 0.028)
[2024-01-03 12:56] LABS: ALT (SGPT) 24 U/L (8-55); AST (SGOT) 17 U/L (5-34); Alkaline Phosphatase 46 U/L (40-110); Anion Gap 13 mmol/L (10-20); BUN (Urea Nitrogen) 9 mg/dL (9.8-20.1); Bilirubin, Total 0.9 mg/dL (0.2-1.2); Calc. Creatinine Clearance 0 mL/min (70-130); Calcium 9.8 mg/dL (7.8-10.44); Chloride 91 mmol/L (98-107); Estimated GFR 97; Glucose 149 mg/dL (80-115); Lipase 47 U/L (8-78); Magnesium 1.5 mg/dL (1.6-2.6); Sodium 146 mmol/L (136-145)
[2024-01-03 13:02] LABS: Carbon Dioxide 44 mmol/L (23-31)
[2024-01-03] MEDS ORDERED: Furosemide 40 MG (4 mL) VIAL ONE (13:23)
[2024-01-03] MEDS ORDERED: Ondansetron ODT 4 MG TAB PO PRN (17:53)
[2024-01-03] MEDS: Ipratropium/Albuterol 3 ML NEB IPPB SCH (18:57)
[2024-01-03 19:36] LABS: Troponin I Less than 0.010 ng/mL (< 0.028)
[2024-01-03] MEDS: Magnesium 2 GM/50 ML(in water) 2 GM in Premix 1 BAG IVPB SCH (19:51)
[2024-01-03] MEDS: methylPREDNISolone Sod Succ 40 MG VIAL IVP SCH (19:51)
[2024-01-03] MEDS: ALPRAZolam 1 MG TAB PO PRN (20:44)
[2024-01-03] MEDS ORDERED: Electrolyte Replacement Protocol 1 EACH FS PRN (23:14)
[2024-01-03] MEDS ORDERED: Ipratropium/Albuterol 3 ML NEB NEB PRN (23:26)
[2024-01-04] MEDS: cefTRIAXone\\ROCEPHIN 1 GM in Sodium Chloride 0.9% 100 ML IVPB SCH (00:01)
[2024-01-04] MEDS: Ipratropium Bromide 2.5 ml Neb NEB SCH (01:19)
[2024-01-04 02:10] LABS: Troponin I Less than 0.010 ng/mL (< 0.028)
[2024-01-04 05:41] LABS: Base Excess 22.6 mEq/L (-2.0 to +3.0); Calcium, Ionized (venous) 1.09 mmol/L (1.16-1.32); Chloride (VBG) 88 mmol/L (98-106); Hematocrit-VBG 37 % (36.0-47.0); Hemoglobin (Hb) 12.6 g/dL (11.7-16.1); Potassium (VBG) 4.11 mmol/L (3.70-5.30); Sodium 140 mmol/L (133-146); pH (venous) 7.478 (7.32-7.43)
[2024-01-04 05:51] LABS: Actual Bicarbonate (HCO3v) 50.2 mEq/L (22-28)
[2024-01-04 06:08] LABS: Hemoglobin 11.5 g/dL (12.0-16.0); Mean Corpuscular HGB CONC 30.3 g/dL (32.0-36.0); Mean Corpuscular Hemoglobin 30.4 pg (27.0-31.0); Mean Corpuscular Volume 100.5 fL (78.0-98.0); Mean Platelet Volume 9.5 fL (7.4-10.4); Platelet Count 140 10x3/uL (130-400); RBC Distribution Width 12.6 % (11.5-14.5); Red Blood Cell (RBC) Count 3.78 mill/uL (4.20-5.40)
[2024-01-04 07:17] LABS: ALT (SGPT) 20 U/L (8-55); AST (SGOT) 13 U/L (5-34); Albumin 2.8 g/dL (3.4-4.8); Alkaline Phosphatase 42 U/L (40-110); Anion Gap 10 mmol/L (10-20); BUN (Urea Nitrogen) 13 mg/dL (9.8-20.1); Bilirubin, Total 0.6 mg/dL (0.2-1.2); Calc. Creatinine Clearance 113 mL/min (70-130); Calcium 9.7 mg/dL (7.8-10.44); Carbon Dioxide 49 mmol/L (23-31); Chloride 88 mmol/L (98-107); Estimated GFR 98; Globulin 2.9 g/dL (2.4-3.5); Glucose 141 mg/dL (80-115); Potassium 4.1 mmol/L (3.5-5.1); Protein, Total 5.7 g/dL (5.8-8.1); Sodium 143 mmol/L (136-145)
[2024-01-04 08:17] LABS: Band 4 % (5-11); Large Platelets 1.7 % (0-5); Lymphocytes 10 % (21-51); Metamyelocyte 2 % (0-0); Monocytes 1 % (0-10); Neutrophil 84 % (42-75); Platelet Adequacy Comment Platelets Normal; Polychromasia SLIGHT = 2-3 cells HPF (0-2); Smudge Cells 11.3 %; Stomatocytes SLIGHT = 2-5 cells HPF (0-1)
[2024-01-04] MEDS ORDERED: Furosemide 20 MG TAB PO SCH (09:00)
[2024-01-04] MEDS ORDERED: Potassium Chloride 20 MEQ TAB PO SCH (09:00)
[2024-01-04 10:13] LABS: Base Excess 20.3 mEq/L (-2.0 to +3.0); Calcium, Ionized (venous) 1.15 mmol/L (1.16-1.32); Chloride (VBG) 88 mmol/L (98-106); Hematocrit-VBG 40 % (36.0-47.0); Hemoglobin (Hb) 13.5 g/dL (11.7-16.1); Potassium (VBG) 4.27 mmol/L (3.70-5.30); Sodium 140 mmol/L (133-146); pH (venous) 7.425 (7.32-7.43)
[2024-01-04] MEDS: Mometasone 200 MCG/Formoterol 5 MCG 120 PUFF INHALER INH SCH (11:05)
[2024-01-04] MEDS: Magnesium 2 GM/50 ML(in water) 2 GM in Premix 1 BAG IVPB SCH (11:35)
[2024-01-04] MEDS: Loratadine 10 MG TAB PO SCH (11:36)
[2024-01-04] MEDS: predniSONE 20 MG TAB PO SCH (11:36)
[2024-01-04] MEDS: Acetaminophen 325 MG TAB PO PRN (11:36)
[2024-01-04] MEDS: Enoxaparin 40 MG (0.4 mL) SYRINGE SC SCH (11:37)
[2024-01-04] MEDS: Amlodipine 5 MG TAB PO SCH (11:37)
[2024-01-04] MEDS: acetaZOLAMIDE Sodium 500 mg Vial IVP SCH (11:37)
[2024-01-04] MEDS: Montelukast Sodium 10 mg Tablet PO SCH (11:37)
[2024-01-04] MEDS: Furosemide 20 MG TAB PO SCH (11:38)
[2024-01-05 05:53] LABS: #Basophils Less than 0.03 10x3/uL (0.0-0.2); %Basophils 0.1 % (0.0-1.0); %Eosinophils 0.5 % (0.0-10.0); %Lymphocytes 21.2 % (21.0-51.0); %Monocytes 7.2 % (0.0-10.0); %Neutrophils 70.7 % (42.0-75.0); Hematocrit 40.1 % (36.0-47.0); Hemoglobin 12.1 g/dL (12.0-16.0); Mean Corpuscular HGB CONC 30.2 g/dL (32.0-36.0); Mean Corpuscular Hemoglobin 31.3 pg (27.0-31.0); Mean Corpuscular Volume 103.6 fL (78.0-98.0); Mean Platelet Volume 9.7 fL (7.4-10.4); Platelet Count 159 10x3/uL (130-400); RBC Distribution Width 13.1 % (11.5-14.5); Red Blood Cell (RBC) Count 3.87 mill/uL (4.20-5.40)
[2024-01-05 06:09] LABS: Anion Gap 13 mmol/L (10-20); BUN (Urea Nitrogen) 19 mg/dL (9.8-20.1); Calc. Creatinine Clearance 94 mL/min (70-130); Calcium 9.7 mg/dL (7.8-10.44); Carbon Dioxide 40 mmol/L (23-31); Chloride 95 mmol/L (98-107); Estimated GFR 89; Glucose 88 mg/dL (80-115); Potassium 3.5 mmol/L (3.5-5.1); Sodium 144 mmol/L (136-145)
[2024-01-05] MEDS: Potassium Chloride 20 MEQ TAB PO SCH (09:29)
[2024-01-05] MEDS: Furosemide 20 MG TAB PO SCH (09:30)
[2024-01-05 10:43] LABS: Actual Bicarbonate (HCO3v) 49.2 mEq/L (22-28)
[2024-01-07] MEDS: Senokot S 8.6-50 MG TAB PO PRN (20:27)
[2024-01-09 05:52] LABS: Anion Gap 12 mmol/L (10-20); BUN (Urea Nitrogen) 16 mg/dL (9.8-20.1); Calc. Creatinine Clearance 92 mL/min (70-130); Calcium 9.4 mg/dL (7.8-10.44); Carbon Dioxide 37 mmol/L (23-31); Chloride 101 mmol/L (98-107); Estimated GFR 86; Glucose 101 mg/dL (80-115); Potassium 3.5 mmol/L (3.5-5.1); Sodium 146 mmol/L (136-145)
[2024-01-09] MEDS: Potassium Chloride 20 MEQ TAB PO SCH (08:18)
[2024-01-09] MEDS: Famotidine 20 MG TAB PO SCH (20:31)
[2024-01-10] MEDS ORDERED: Ipratropium/Albuterol 3 ML NEB IPPB PRN (12:59)
[2024-01-10] MEDS: Ipratropium/Albuterol 3 ML NEB EZPAP SCH (13:25)
[2024-01-11 08:05] LABS: Anion Gap 17 mmol/L (10-20); BUN (Urea Nitrogen) 22 mg/dL (9.8-20.1); Calc. Creatinine Clearance 88 mL/min (70-130); Calcium 9.5 mg/dL (7.8-10.44); Carbon Dioxide 30 mmol/L (23-31); Chloride 99 mmol/L (98-107); Estimated GFR 82; Glucose 84 mg/dL (80-115); Sodium 142 mmol/L (136-145)
[2024-01-12 10:12] LABS: Anion Gap 14 mmol/L (10-20); BUN (Urea Nitrogen) 16 mg/dL (9.8-20.1); Calc. Creatinine Clearance 90 mL/min (70-130); Calcium 9.4 mg/dL (7.8-10.44); Carbon Dioxide 37 mmol/L (23-31); Chloride 98 mmol/L (98-107); Estimated GFR 85; Glucose 153 mg/dL (80-115); Potassium 2.9 mmol/L (3.5-5.1); Sodium 146 mmol/L (136-145)
[2024-01-12] MEDS: Potassium Chloride 20 MEQ TAB PO SCH (13:39)
[2024-01-12] MEDS: Potassium Bicarbonate/Cit Ac 20 MEQ TAB PO SCH (16:31)
[2024-01-13 05:26] LABS: Anion Gap 13 mmol/L (10-20); BUN (Urea Nitrogen) 18 mg/dL (9.8-20.1); Calc. Creatinine Clearance 98 mL/min (70-130); Calcium 9.7 mg/dL (7.8-10.44); Carbon Dioxide 35 mmol/L (23-31); Chloride 101 mmol/L (98-107); Estimated GFR 94; Glucose 124 mg/dL (80-115); Potassium 3.6 mmol/L (3.5-5.1); Sodium 145 mmol/L (136-145)
[2024-01-13 11:58] VITALS: BP 126/75; TEMP 99
== END 2024-01-13 12:34 | disposition home or self-care (01) | DRG 291 ==
LOC: ERS 10:59 → IMCU/EMU 16:29 → T4-B 01-05 13:01
PROVIDERS: ADMIT Student in an Organized Health Care Education/Training Program; ATTEND Internal Medicine
PROC: 5A09457 Assistance with Respiratory Ventilation, 24-96 Consecutive Hours, Continuous Positive Airway Pressure (ICD-10-PCS; principal; 2024-01-04)
DX: I11.0 Hypertensive heart disease with heart failure (principal); G93.41 Metabolic encephalopathy; I50.33 Acute on chronic diastolic (congestive) heart failure; J96.21 Acute and chronic respiratory failure with hypoxia; J96.22 Acute and chronic respiratory failure with hypercapnia; J44.1 Chronic obstructive pulmonary disease with (acute) exacerbation; E87.20 Acidosis, unspecified; E87.0 Hyperosmolality and hypernatremia; K59.00 Constipation, unspecified; E87.6 Hypokalemia; R39.198 Other difficulties with micturition; F32.A Depression, unspecified; G47.33 Obstructive sleep apnea (adult) (pediatric); F41.1 Generalized anxiety disorder; C52 Malignant neoplasm of vagina; E83.42 Hypomagnesemia; H53.8 Other visual disturbances; Z79.899 Other long term (current) drug therapy; Z91.199 Patient's noncompliance with other medical treatment and regimen due to unspecified reason; Z87.891 Personal history of nicotine dependence
CPT/HCPCS: 36415; 71045; 71275; 80048; 80053; 82805; 83605; 83690; 83735; 83880; 84443; 84484; 85025; 85610; 85730; 87040; 87149; 93005; 93306; 94640; 94660; 94664; 96374; 96375; J0696; J1120; J1650; J1940; J2920; J2930; J3475; J3490; J7512; J7620; Q9967

== ENCOUNTER 2024-02-06 11:26 | Inpatient (IN) | payer MEDICARE ==
[2024-02-06] MEDS ORDERED: methylPREDNISolone Sod Succ/PF 125 MG/2 ML VIAL ONE (11:45)
[2024-02-06] MEDS ORDERED: Magnesium 2 GM/50 ML BAG (IN WATER) ONE (11:45)
[2024-02-06 11:53] LABS: Analyzer IN Cardio ER; Base Excess 18.3 mEq/L (-2.0 to +3.0); Calcium, Ionized (venous) 1.16 mmol/L (1.16-1.32); Chloride (VBG) 90 mmol/L (98-106); Hematocrit-VBG 38 % (36.0-47.0); Sodium 143 mmol/L (133-146); pH (venous) 7.346 (7.32-7.43)
[2024-02-06 11:55] LABS: Actual Bicarbonate (HCO3v) 48.6 mEq/L (22-28)
[2024-02-06] MEDS ORDERED: Albuterol 2.5 MG (3 mL) NEB ONE (12:11)
[2024-02-06 12:30] LABS: #Basophils Less than 0.03 10x3/uL (0.0-0.2); #Eosinphils Less than 0.03 10x3/uL (0.0-0.7); %Basophils 0.2 % (0.0-1.0); %Eosinophils 0.2 % (0.0-10.0); %Lymphocytes 11.5 % (21.0-51.0); %Monocytes 2.5 % (0.0-10.0); Hemoglobin 12.8 g/dL (12.0-16.0); Mean Corpuscular HGB CONC 30.5 g/dL (32.0-36.0); Mean Corpuscular Hemoglobin 30.6 pg (27.0-31.0); Mean Corpuscular Volume 100.5 fL (78.0-98.0); Mean Platelet Volume 9.8 fL (7.4-10.4); Platelet Count 225 10x3/uL (130-400); RBC Distribution Width 12.5 % (11.5-14.5); Red Blood Cell (RBC) Count 4.18 mill/uL (4.20-5.40)
[2024-02-06 12:51] LABS: ALT (SGPT) 20 U/L (8-55); AST (SGOT) 17 U/L (5-34); Albumin 3.4 g/dL (3.4-4.8); Alkaline Phosphatase 50 U/L (40-110); Anion Gap 13 mmol/L (10-20); BUN (Urea Nitrogen) 10 mg/dL (9.8-20.1); Bilirubin, Total 0.6 mg/dL (0.2-1.2); Calc. Creatinine Clearance 0 mL/min (70-130); Calcium 9.7 mg/dL (7.8-10.44); Carbon Dioxide 49 mmol/L (23-31); Chloride 89 mmol/L (98-107); Estimated GFR 96; Glucose 147 mg/dL (80-115); Magnesium 1.6 mg/dL (1.6-2.6); Potassium 4.7 mmol/L (3.5-5.1); Protein, Total 6.4 g/dL (5.8-8.1); Sodium 146 mmol/L (136-145)
[2024-02-06 12:53] LABS: Troponin I 0.011 ng/mL (< 0.028)
[2024-02-06] MEDS ORDERED: cefTRIAXone (ROCEPHIN) 2 GM VIAL ONE (13:01)
[2024-02-06] MEDS ORDERED: Azithromycin 500 MG VIAL ONE (13:01)
[2024-02-06] MEDS ORDERED: Sodium Chloride 0.9% 100 ML ONE (13:02)
[2024-02-06] MEDS ORDERED: Ondansetron PF 4 MG/2 ML Vial IVP PRN (13:49)
[2024-02-06] MEDS ORDERED: Acetaminophen 325 MG TAB PO PRN (13:49)
[2024-02-06 14:23] LABS: Actual Bicarbonate (HCO3a) 46.2 mEq/L (22-28); Analyzer IN Cardio ER; Base Excess (BEa) 16.1 mEq/L (-2.0 to +3.0); Calcium, Ionized (arterial) 1.18 mmol/L (1.12-1.30); Carboxyhemoglobin (COHb) 0.9 gm% (0.0-3.0); Hematocrit-ABG 36 % (36.0-47.0); Hemoglobin (Hb) 12.2 g/dL (12.0-16.0); O2 Tension (PaO2), arterial 76.7 mmHg (> 80.0); pH, Arterial 7.325 (7.35-7.45)
[2024-02-06 14:24] LABS: CO2 Tension 90.6 mmHg (35.0-45.0); Puncture Site Right Radial
[2024-02-06] MEDS: Ipratropium/Albuterol 3 ML NEB NEB SCH (14:37)
[2024-02-06 17:17] LABS: Troponin I Less than 0.010 ng/mL (< 0.028)
[2024-02-06 18:13] VITALS: BMI 29.5
[2024-02-06] MEDS: methylPREDNISolone Sod Succ 40 MG VIAL IVP SCH (18:49)
[2024-02-06] MEDS ORDERED: Ipratropium/Albuterol 3 ML NEB NEB SCH (19:00)
[2024-02-06 19:10] LABS: Troponin I Less than 0.010 ng/mL (< 0.028)
[2024-02-06] MEDS: ALPRAZolam 1 MG TAB PO SCH (22:18)
[2024-02-07] MEDS: ALPRAZolam 1 MG TAB PO PRN (05:12)
[2024-02-07 05:39] LABS: #Basophils Less than 0.03 10x3/uL (0.0-0.2); #Eosinphils Less than 0.03 10x3/uL (0.0-0.7); %Lymphocytes 10.6 % (21.0-51.0); %Monocytes 1.8 % (0.0-10.0); %Neutrophils 87.2 % (42.0-75.0); Hematocrit 36.2 % (36.0-47.0); Hemoglobin 11.2 g/dL (12.0-16.0); Mean Corpuscular HGB CONC 30.9 g/dL (32.0-36.0); Mean Corpuscular Hemoglobin 30.7 pg (27.0-31.0); Mean Corpuscular Volume 99.2 fL (78.0-98.0); Mean Platelet Volume 9.3 fL (7.4-10.4); Platelet Count 184 10x3/uL (130-400); RBC Distribution Width 12.3 % (11.5-14.5); Red Blood Cell (RBC) Count 3.65 mill/uL (4.20-5.40)
[2024-02-07 06:31] LABS: Anion Gap 15 mmol/L (10-20); BUN (Urea Nitrogen) 15 mg/dL (9.8-20.1); Calc. Creatinine Clearance 104 mL/min (70-130); Calcium 9.6 mg/dL (7.8-10.44); Carbon Dioxide 42 mmol/L (23-31); Chloride 92 mmol/L (98-107); Estimated GFR 97; Glucose 150 mg/dL (80-115); Magnesium 1.9 mg/dL (1.6-2.6); Potassium 3.8 mmol/L (3.5-5.1); Sodium 145 mmol/L (136-145)
[2024-02-07] MEDS: Enoxaparin 40 MG (0.4 mL) SYRINGE SC SCH (08:31)
[2024-02-07] MEDS: Montelukast Sodium 10 mg Tablet PO SCH (08:31)
[2024-02-07] MEDS ORDERED: Furosemide 20 MG TAB PO SCH (09:00)
[2024-02-07] MEDS: cefTRIAXone\\ROCEPHIN 1 GM in Sodium Chloride 0.9% 100 ML IVPB SCH (12:53)
[2024-02-07] MEDS: Azithromycin 500 MG in Sodium Chloride 0.9% 250 ML 250 ML IVPB SCH (14:18)
[2024-02-07] MEDS: Carvedilol 3.125 MG TAB PO SCH (20:15)
[2024-02-07] MEDS: methylPREDNISolone Sod Succ 40 MG VIAL IVP SCH (20:16)
[2024-02-08 07:34] LABS: #Basophils Less than 0.03 10x3/uL (0.0-0.2); #Eosinphils Less than 0.03 10x3/uL (0.0-0.7); %Lymphocytes 15.3 % (21.0-51.0); %Monocytes 4.3 % (0.0-10.0); %Neutrophils 80.1 % (42.0-75.0); Hematocrit 37.1 % (36.0-47.0); Hemoglobin 11.6 g/dL (12.0-16.0); Mean Corpuscular HGB CONC 31.3 g/dL (32.0-36.0); Mean Corpuscular Hemoglobin 31.4 pg (27.0-31.0); Mean Corpuscular Volume 100.3 fL (78.0-98.0); Mean Platelet Volume 9.2 fL (7.4-10.4); Platelet Count 220 10x3/uL (130-400); RBC Distribution Width 12.7 % (11.5-14.5)
[2024-02-08 07:52] LABS: Anion Gap 14 mmol/L (10-20); BUN (Urea Nitrogen) 18 mg/dL (9.8-20.1); Calc. Creatinine Clearance 91 mL/min (70-130); Calcium 9.6 mg/dL (7.8-10.44); Carbon Dioxide 42 mmol/L (23-31); Chloride 95 mmol/L (98-107); Estimated GFR 89; Glucose 118 mg/dL (80-115); Potassium 4.5 mmol/L (3.5-5.1); Sodium 146 mmol/L (136-145)
[2024-02-08] MEDS: Amlodipine 5 MG TAB PO SCH (08:14)
[2024-02-09 06:43] LABS: Anion Gap 9 mmol/L (10-20); BUN (Urea Nitrogen) 19 mg/dL (9.8-20.1); Calc. Creatinine Clearance 94 mL/min (70-130); Calcium 9.5 mg/dL (7.8-10.44); Carbon Dioxide 44 mmol/L (23-31); Chloride 97 mmol/L (98-107); Estimated GFR 89; Glucose 94 mg/dL (80-115); Potassium 3.6 mmol/L (3.5-5.1); Sodium 146 mmol/L (136-145)
[2024-02-09 07:23] LABS: #Basophils Less than 0.03 10x3/uL (0.0-0.2); %Eosinophils 0.3 % (0.0-10.0); %Lymphocytes 28.6 % (21.0-51.0); %Monocytes 8.6 % (0.0-10.0); Hematocrit 38.3 % (36.0-47.0); Hemoglobin 11.6 g/dL (12.0-16.0); Mean Corpuscular HGB CONC 30.3 g/dL (32.0-36.0); Mean Corpuscular Volume 102.4 fL (78.0-98.0); Mean Platelet Volume 9.3 fL (7.4-10.4); Platelet Count 232 10x3/uL (130-400); RBC Distribution Width 12.9 % (11.5-14.5); Red Blood Cell (RBC) Count 3.74 mill/uL (4.20-5.40)
[2024-02-09] MEDS: methylPREDNISolone Sod Succ 40 MG VIAL IVP SCH (08:53)
[2024-02-09] MEDS: Albuterol 2.5 MG (3 mL) NEB NEB PRN (15:38)
[2024-02-11] MEDS ORDERED: Potassium Chloride 20 MEQ TAB PO SCH (09:00)
[2024-02-11] MEDS: Loratadine 10 MG TAB PO SCH (09:34)
[2024-02-11 17:40] VITALS: BP 132/75
[2024-02-12 07:44] VITALS: TEMP 98.2
[2024-02-12] MEDS: predniSONE 20 MG TAB PO SCH (09:07)
== END 2024-02-12 10:45 | disposition home or self-care (01) | DRG 189 ==
LOC: ERS 11:26 → ERHOLD 13:45 → IMCU/EMU 17:46
PROVIDERS: ADMIT Internal Medicine; ATTEND Family Medicine
PROC: 4A133R1 Monitoring of Arterial Saturation, Peripheral, Percutaneous Approach (ICD-10-PCS; 2024-02-06)
PROC: 5A09457 Assistance with Respiratory Ventilation, 24-96 Consecutive Hours, Continuous Positive Airway Pressure (ICD-10-PCS; principal; 2024-02-07)
DX: J96.21 Acute and chronic respiratory failure with hypoxia (principal); J44.1 Chronic obstructive pulmonary disease with (acute) exacerbation; I50.32 Chronic diastolic (congestive) heart failure; E87.4 Mixed disorder of acid-base balance; F41.1 Generalized anxiety disorder; J96.22 Acute and chronic respiratory failure with hypercapnia; E78.5 Hyperlipidemia, unspecified; I11.0 Hypertensive heart disease with heart failure; Z99.81 Dependence on supplemental oxygen; Z79.52 Long term (current) use of systemic steroids; Z90.49 Acquired absence of other specified parts of digestive tract; Z98.51 Tubal ligation status; Z87.891 Personal history of nicotine dependence; Z79.51 Long term (current) use of inhaled steroids; D53.9 Nutritional anemia, unspecified; Z79.899 Other long term (current) drug therapy
CPT/HCPCS: 36415; 36416; 71045; 80048; 80053; 82607; 82805; 83605; 83735; 83880; 84484; 85025; 87040; 93005; 94640; 94644; 94660; 96365; 96366; 96367; 96375; J0456; J0696; J1650; J2920; J2930; J3475; J3490; J7050; J7512; J7611; J7620

== ENCOUNTER 2024-02-15 12:52 | Inpatient (IN) | payer MEDICARE ==
[2024-02-15] MEDS ORDERED: KETAMINE 100 MG/ML (5ML VIAL) ONE (13:00)
[2024-02-15] MEDS ORDERED: EPINEPHrine 1 MG/10 ML Abboject SYRINGE ONE (13:07)
[2024-02-15] MEDS ORDERED: Amiodarone 150 MG/3 ML VIAL ONE (13:07)
[2024-02-15] MEDS ORDERED: Sodium Bicarb 50 MEQ/50 ML Abboject 8.4% SYRINGE ONE (13:07)
[2024-02-15] MEDS ORDERED: Rocuronium Bromide 10 MG/ML (10ML VIAL) ONE (13:07)
[2024-02-15] MEDS ORDERED: EPINEPHrine 1 MG/ML VIAL ONE (13:28)
[2024-02-15] MEDS ORDERED: Magnesium 2 GM/50 ML BAG (IN WATER) ONE (13:34)
[2024-02-15] MEDS ORDERED: methylPREDNISolone Sod Succ/PF 125 MG/2 ML VIAL ONE (13:34)
[2024-02-15 13:40] LABS: #Basophils Less than 0.03 10x3/uL (0.0-0.2); %Basophils 0.2 % (0.0-1.0); %Lymphocytes 12.8 % (21.0-51.0); %Neutrophils 77.1 % (42.0-75.0); Hematocrit 40.3 % (36.0-47.0); Hemoglobin 12.3 g/dL (12.0-16.0); Mean Corpuscular HGB CONC 30.5 g/dL (32.0-36.0); Mean Corpuscular Hemoglobin 31.4 pg (27.0-31.0); Mean Corpuscular Volume 102.8 fL (78.0-98.0); Mean Platelet Volume 9.4 fL (7.4-10.4); Platelet Count 264 10x3/uL (130-400); RBC Distribution Width 13.5 % (11.5-14.5); Red Blood Cell (RBC) Count 3.92 mill/uL (4.20-5.40)
[2024-02-15 13:54] LABS: ALT (SGPT) 31 U/L (8-55); AST (SGOT) 23 U/L (5-34); Albumin 3.1 g/dL (3.4-4.8); Alkaline Phosphatase 51 U/L (40-110); Anion Gap 17 mmol/L (10-20); BUN (Urea Nitrogen) 22 mg/dL (9.8-20.1); Bilirubin, Total 0.5 mg/dL (0.2-1.2); Calc. Creatinine Clearance 0 mL/min (70-130); Carbon Dioxide 40 mmol/L (23-31); Chloride 95 mmol/L (98-107); Estimated GFR 81; Globulin 2.4 g/dL (2.4-3.5); Glucose 148 mg/dL (80-115); Potassium 4.4 mmol/L (3.5-5.1); Protein, Total 5.5 g/dL (5.8-8.1); Sodium 148 mmol/L (136-145)
[2024-02-15] MEDS ORDERED: NOREPINEPHRINE 8 MG/250 ML-D5W 250 ML ONE (13:55)
[2024-02-15 13:59] LABS: Troponin I 0.071 ng/mL (< 0.028)
[2024-02-15 14:24] LABS: Actual Bicarbonate (HCO3a) 38.4 mEq/L (22-28); Analyzer IN Cardio ER; Base Excess (BEa) 10.3 mEq/L (-2.0 to +3.0); CO2 Tension 70.1 mmHg (35.0-45.0); Calcium, Ionized (arterial) 0.94 mmol/L (1.12-1.30); Carboxyhemoglobin (COHb) 0.7 gm% (0.0-3.0); Hematocrit-ABG 36 % (36.0-47.0); Hemoglobin (Hb) 12.2 g/dL (12.0-16.0); O2 Tension (PaO2), arterial 531.3 mmHg (> 80.0); Potassium - ABG Lab 2.78 mmol/L (3.70-5.30); pH, Arterial 7.356 (7.35-7.45)
[2024-02-15 14:25] LABS: Puncture Site Right Brachial
[2024-02-15] MEDS ORDERED: Pantoprazole 40 MG VIAL ONE (14:28)
[2024-02-15 14:30] LABS: ALV-art Gradient 94.075 mmHg (0-20)
[2024-02-15 15:04] LABS: Bacteria/HPF None Seen HPF (None Seen); Bilirubin Negative (Negative); Blood, Urine Negative (Negative); CAUTI Indications for Culture Alt mental st,lethar; Clarity Clear (Clear); Glucose, Urine (Dipstick) 30 mg/dL (Negative); Ketone, Urine Negative (Negative); Leukocyte Negative Leu/uL (Negative); Mucous/LPF Rare LPF (<2+); Nitrite Negative (Negative); Protein, Urine (Dipstick) 30 mg/dL (Neg-Trace); RBC/HPF 0-3 HPF (0-3); Specific Gravity, Urine 1.023 (1.002-1.036); Squamous Epithelial None Seen HPF (0-3); Urobilinogen Normal mg/dL (Less than 2); WBC/HPF 0-3 HPF (0-3); pH, Urine 5.5 (5.0-9.0)
[2024-02-15 15:10] LABS: Urine Culture Reflex No No
[2024-02-15] MEDS ORDERED: Bisacodyl 5 MG TAB PO PRN (15:10)
[2024-02-15] MEDS ORDERED: Senokot S 8.6-50 MG TAB PO PRN (15:10)
[2024-02-15] MEDS ORDERED: Ventilator Sedation Protocol 1 EACH FS SCH (15:15)
[2024-02-15] MEDS ORDERED: Electrolyte Replacement Protocol 1 EACH FS PRN (15:18)
[2024-02-15] MEDS ORDERED: Iopamidol-370 76% 500 ML MDV (1 ML CHARGE) ONE (15:24)
[2024-02-15] MEDS ORDERED: NOREPINEPHRINE 8 MG/250 ML-D5W 250 ML IVPB SCH (15:30)
[2024-02-15] MEDS ORDERED: Propofol BOLUS 1,000 MG/100 ML VIAL IV PRN (15:30)
[2024-02-15] MEDS ORDERED: Morphine 2 MG/ML VIAL SLOW IVP PRN (15:30)
[2024-02-15] MEDS ORDERED: DISCONTINUE PREVIOUS NARCOTIC PAIN MEDICATIONS AND BENZODIAZEPINES FS SCH (15:30)
[2024-02-15] MEDS ORDERED: Fentanyl BOLUS 250 ML IVPB PRN (15:30)
[2024-02-15] MEDS ORDERED: Lorazepam 2 MG/ML VIAL SLOW IVP PRN (15:30)
[2024-02-15] MEDS: Sodium Chloride 0.9% 1,000 ML IV SCH (16:23)
[2024-02-15] MEDS: Ventilator Sedation Protocol 1 EACH FS ONE (16:28)
[2024-02-15 16:29] VITALS: BMI 31.7
[2024-02-15] MEDS: cefTRIAXone\\ROCEPHIN 1 GM in Sodium Chloride 0.9% 100 ML IVPB SCH (16:38)
[2024-02-15] MEDS: Azithromycin 500 MG in Sodium Chloride 0.9% 250 ML 250 ML IVPB SCH (16:38)
[2024-02-15] MEDS: Pantoprazole 40 MG VIAL IVP SCH (16:39)
[2024-02-15] MEDS: methylPREDNISolone Sod Succ 40 MG VIAL IVP SCH (16:49)
[2024-02-15] MEDS: Acetaminophen 325 MG TAB PO SCH (16:49)
[2024-02-15 17:45] LABS: Amphetamine Not Detected (NotDetected); Barbiturates Screen Not Detected (NotDetected); Benzodiazepine Screen Detected (NotDetected); Cocaine Metabolite Screen Not Detected (NotDetected); Methadone Not Detected (NotDetected); Methamphetamine Not Detected (NotDetected); Opiate Screen Not Detected (NotDetected); Oxycodone Screen Not Detected (NotDetected); Phencyclidine (PCP) Not Detected (NotDetected); THC/Cannabinoid Screen Not Detected (NotDetected); Tricyclic Screen Not Detected (NotDetected)
[2024-02-15] MEDS ORDERED: methylPREDNISolone Sod Succ 40 MG VIAL IVP SCH (18:00)
[2024-02-15] MEDS: Propofol 1,000 MG/100 ML VIAL IV PRN (18:22)
[2024-02-15] MEDS: Arformoterol 15 MCG/2 ML NEB NEB SCH (18:29)
[2024-02-15] MEDS: Budesonide 0.5 MG/2 ML NEB INH SCH (18:29)
[2024-02-15] MEDS: Ipratropium/Albuterol 3 ML NEB NEB SCH (18:30)
[2024-02-15] MEDS: Fentanyl CADD 100 ML IV SCH (19:50)
[2024-02-15] MEDS: ALPRAZolam 1 MG TAB PER TUBE SCH (21:01)
[2024-02-15] MEDS ORDERED: Glucagon 1 MG/ML KIT IM PRN (23:12)
[2024-02-15] MEDS ORDERED: Dextrose 5% in Water 1,000 ML IV PRN (23:12)
[2024-02-15] MEDS ORDERED: Dextrose 50% Abboject 50 ML SYRINGE SLOW IVP PRN (23:12)
[2024-02-15] MEDS ORDERED: Insulin Lispro 100 UNIT/ML 10 ML VIAL SC PRN (23:15)
[2024-02-16] MEDS: Insulin Lispro 100 UNIT/ML 10 ML VIAL SC PRN (00:03)
[2024-02-16] MEDS: NOREPINEPHRINE 8 MG/250 ML-D5W 250 ML IVPB PRN (00:08)
[2024-02-16 04:05] LABS: #Basophils 0.03 10x3/uL (0.0-0.2); #Eosinphils Less than 0.03 10x3/uL (0.0-0.7); %Basophils 0.1 % (0.0-1.0); %Monocytes 3.3 % (0.0-10.0); %Neutrophils 91.1 % (42.0-75.0); Hematocrit 37.4 % (36.0-47.0); Hemoglobin 11.5 g/dL (12.0-16.0); Mean Corpuscular HGB CONC 30.7 g/dL (32.0-36.0); Mean Corpuscular Hemoglobin 31.3 pg (27.0-31.0); Mean Corpuscular Volume 101.9 fL (78.0-98.0); Mean Platelet Volume 9.6 fL (7.4-10.4); Platelet Count 268 10x3/uL (130-400); RBC Distribution Width 13.6 % (11.5-14.5); Red Blood Cell (RBC) Count 3.67 mill/uL (4.20-5.40)
[2024-02-16 04:20] LABS: Phosphorus 2.8 mg/dL (2.3-4.7)
[2024-02-16 04:23] LABS: Anion Gap 15 mmol/L (10-20); BUN (Urea Nitrogen) 21 mg/dL (9.8-20.1); Calc. Creatinine Clearance 73 mL/min (70-130); Calcium 7.7 mg/dL (7.8-10.44); Carbon Dioxide 34 mmol/L (23-31); Chloride 102 mmol/L (98-107); Estimated GFR 60; Glucose 192 mg/dL (80-115); Potassium 4.1 mmol/L (3.5-5.1); Sodium 147 mmol/L (136-145)
[2024-02-16 07:02] LABS: Actual Bicarbonate (HCO3a) 34.9 mEq/L (22-28); Base Excess (BEa) 6.8 mEq/L (-2.0 to +3.0); Calcium, Ionized (arterial) 1.05 mmol/L (1.12-1.30); Hematocrit-ABG 38 % (36.0-47.0); Hemoglobin (Hb) 12.9 g/dL (12.0-16.0); O2 Tension (PaO2), arterial 68.1 mmHg (> 80.0); Potassium - ABG Lab 3.97 mmol/L (3.70-5.30)
[2024-02-16 07:03] LABS: ALV-art Gradient 132.475 mmHg (0-20); CO2 Tension 67.7 mmHg (35.0-45.0); Puncture Site LRA
[2024-02-16] MEDS: Enoxaparin 40 MG (0.4 mL) SYRINGE SC SCH (08:06)
[2024-02-16] MEDS: Pantoprazole 40 MG VIAL IVP SCH (08:06)
[2024-02-16] MEDS ORDERED: Pantoprazole 40 MG VIAL IVP SCH (09:00)
[2024-02-16] MEDS ORDERED: Enoxaparin 40 MG (0.4 mL) SYRINGE SC SCH (09:00)
[2024-02-16] MEDS: Sodium Chloride 0.45% 1,000 ML IV SCH (12:09)
[2024-02-16] MEDS: methylPREDNISolone Sod Succ 40 MG VIAL IVP SCH (21:45)
[2024-02-17 05:07] LABS: #Basophils Less than 0.03 10x3/uL (0.0-0.2); #Eosinphils Less than 0.03 10x3/uL (0.0-0.7); %Basophils 0.1 % (0.0-1.0); %Lymphocytes 5.5 % (21.0-51.0); %Monocytes 3.5 % (0.0-10.0); %Neutrophils 90.3 % (42.0-75.0); Hemoglobin 10.2 g/dL (12.0-16.0); Mean Corpuscular HGB CONC 30.9 g/dL (32.0-36.0); Mean Corpuscular Volume 103.4 fL (78.0-98.0); Mean Platelet Volume 9.3 fL (7.4-10.4); Platelet Count 176 10x3/uL (130-400); Red Blood Cell (RBC) Count 3.19 mill/uL (4.20-5.40)
[2024-02-17 05:23] LABS: Anion Gap 14 mmol/L (10-20); BUN (Urea Nitrogen) 18 mg/dL (9.8-20.1); Calc. Creatinine Clearance 93 mL/min (70-130); Calcium 8.4 mg/dL (7.8-10.44); Carbon Dioxide 33 mmol/L (23-31); Chloride 101 mmol/L (98-107); Estimated GFR 81; Glucose 153 mg/dL (80-115); Magnesium 1.7 mg/dL (1.6-2.6); Sodium 144 mmol/L (136-145)
[2024-02-17] MEDS: ALPRAZolam 1 MG TAB PO SCH (09:12)
[2024-02-17] MEDS: Magnesium 2 GM/50 ML(in water) 2 GM in Premix 1 BAG IVPB SCH (09:13)
[2024-02-17] MEDS: Pantoprazole DR 40 MG TAB PO SCH (09:17)
[2024-02-17] MEDS: Ibuprofen 200 MG TAB PO SCH (21:46)
[2024-02-18 06:33] LABS: #Basophils Less than 0.03 10x3/uL (0.0-0.2); #Eosinphils Less than 0.03 10x3/uL (0.0-0.7); %Basophils 0.1 % (0.0-1.0); %Lymphocytes 5.5 % (21.0-51.0); %Monocytes 4.1 % (0.0-10.0); %Neutrophils 89.3 % (42.0-75.0); Hematocrit 34.7 % (36.0-47.0); Hemoglobin 10.3 g/dL (12.0-16.0); Mean Corpuscular HGB CONC 29.7 g/dL (32.0-36.0); Mean Corpuscular Hemoglobin 30.7 pg (27.0-31.0); Mean Corpuscular Volume 103.3 fL (78.0-98.0); Mean Platelet Volume 9.7 fL (7.4-10.4); Platelet Count 197 10x3/uL (130-400); RBC Distribution Width 13.9 % (11.5-14.5); Red Blood Cell (RBC) Count 3.36 mill/uL (4.20-5.40)
[2024-02-18 06:53] LABS: Anion Gap 12 mmol/L (10-20); BUN (Urea Nitrogen) 21 mg/dL (9.8-20.1); Calc. Creatinine Clearance 101 mL/min (70-130); Calcium 8.8 mg/dL (7.8-10.44); Carbon Dioxide 35 mmol/L (23-31); Chloride 100 mmol/L (98-107); Estimated GFR 84; Glucose 194 mg/dL (80-115); Phosphorus 2.9 mg/dL (2.3-4.7); Potassium 4.2 mmol/L (3.5-5.1); Sodium 143 mmol/L (136-145)
[2024-02-18] MEDS: Magnesium 2 GM/50 ML(in water) 2 GM in Premix 1 BAG IVPB SCH (09:03)
[2024-02-18] MEDS: Ibuprofen 200 MG TAB PO PRN (15:56)
[2024-02-19] MEDS: predniSONE 20 MG TAB PO SCH (08:52)
[2024-02-19] MEDS: Cefdinir 300 MG CAP PO SCH (08:52)
[2024-02-19] MEDS ORDERED: Polyethylene Glycol 3350 17 GM Packet PO PRN (10:23)
[2024-02-19] MEDS ORDERED: Senokot S 8.6-50 MG TAB PO SCH (10:30)
[2024-02-19] MEDS: Senokot S 8.6-50 MG TAB PO SCH (21:19)
[2024-02-19] MEDS ORDERED: traZODone HCl 50 MG TAB PO PRN (22:35)
[2024-02-20 05:52] LABS: #Basophils Less than 0.03 10x3/uL (0.0-0.2); %Basophils 0.1 % (0.0-1.0); %Eosinophils 0.9 % (0.0-10.0); %Lymphocytes 14.5 % (21.0-51.0); %Monocytes 5.9 % (0.0-10.0); %Neutrophils 77.4 % (42.0-75.0); Hemoglobin 10.6 g/dL (12.0-16.0); Mean Corpuscular HGB CONC 30.3 g/dL (32.0-36.0); Mean Corpuscular Hemoglobin 31.5 pg (27.0-31.0); Mean Corpuscular Volume 104.2 fL (78.0-98.0); Mean Platelet Volume 9.2 fL (7.4-10.4); Platelet Count 182 10x3/uL (130-400); RBC Distribution Width 13.6 % (11.5-14.5); Red Blood Cell (RBC) Count 3.36 mill/uL (4.20-5.40)
[2024-02-20 06:09] LABS: Anion Gap 10 mmol/L (10-20); BUN (Urea Nitrogen) 19 mg/dL (9.8-20.1); Calc. Creatinine Clearance 111 mL/min (70-130); Calcium 9.1 mg/dL (7.8-10.44); Carbon Dioxide 45 mmol/L (23-31); Chloride 96 mmol/L (98-107); Estimated GFR 92; Glucose 87 mg/dL (80-115); Potassium 4.1 mmol/L (3.5-5.1); Sodium 147 mmol/L (136-145)
[2024-02-20] MEDS: Albuterol 2.5 MG (3 mL) NEB ONE (15:11)
[2024-02-20] MEDS: Ipratropium Bromide 2.5 ml Neb ONE (15:11)
[2024-02-21 04:52] LABS: Anion Gap 9 mmol/L (10-20); BUN (Urea Nitrogen) 16 mg/dL (9.8-20.1); Calc. Creatinine Clearance 129 mL/min (70-130); Calcium 9.2 mg/dL (7.8-10.44); Carbon Dioxide 47 mmol/L (23-31); Chloride 95 mmol/L (98-107); Estimated GFR 98; Glucose 86 mg/dL (80-115); Potassium 3.9 mmol/L (3.5-5.1); Sodium 147 mmol/L (136-145)
[2024-02-21] MEDS: Furosemide 40 MG (4 mL) VIAL SLOW IVP SCH (14:17)
[2024-02-22 06:27] LABS: #Basophils Less than 0.03 10x3/uL (0.0-0.2); %Basophils 0.2 % (0.0-1.0); %Eosinophils 2.1 % (0.0-10.0); %Lymphocytes 16.1 % (21.0-51.0); %Monocytes 6.5 % (0.0-10.0); Hemoglobin 11.7 g/dL (12.0-16.0); Mean Corpuscular HGB CONC 30.8 g/dL (32.0-36.0); Mean Corpuscular Hemoglobin 31.3 pg (27.0-31.0); Mean Corpuscular Volume 101.6 fL (78.0-98.0); Mean Platelet Volume 8.9 fL (7.4-10.4); Platelet Count 181 10x3/uL (130-400); RBC Distribution Width 13.9 % (11.5-14.5); Red Blood Cell (RBC) Count 3.74 mill/uL (4.20-5.40)
[2024-02-22 06:38] LABS: Anion Gap 10 mmol/L (10-20); BUN (Urea Nitrogen) 18 mg/dL (9.8-20.1); Calc. Creatinine Clearance 114 mL/min (70-130); Calcium 9.2 mg/dL (7.8-10.44); Carbon Dioxide 50 mmol/L (23-31); Chloride 90 mmol/L (98-107); Estimated GFR 95; Glucose 90 mg/dL (80-115); Potassium 3.9 mmol/L (3.5-5.1); Sodium 146 mmol/L (136-145)
[2024-02-22] MEDS: acetaZOLAMIDE Sodium 500 mg Vial IVP SCH (12:44)
[2024-02-22] MEDS: ALPRAZolam 0.5 MG TAB PO SCH (12:45)
[2024-02-22 15:21] VITALS: BMI 31.4
[2024-02-23 07:02] LABS: Anion Gap 12 mmol/L (10-20); BUN (Urea Nitrogen) 19 mg/dL (9.8-20.1); Calc. Creatinine Clearance 104 mL/min (70-130); Carbon Dioxide 42 mmol/L (23-31); Chloride 96 mmol/L (98-107); Potassium 3.8 mmol/L (3.5-5.1); Sodium 146 mmol/L (136-145)
[2024-02-23 07:03] LABS: Calcium 9.4 mg/dL (7.8-10.44); Estimated GFR 93; Glucose 95 mg/dL (80-115)
[2024-02-23 12:59] VITALS: BP 120/62
[2024-02-23 22:26] VITALS: TEMP 98.3
== END 2024-02-23 21:49 | DRG 208 ==
LOC: ERS 12:52 → CCU 15:56 → IMCU/EMU 02-17 13:31
PROVIDERS: ADMIT Hospitalist; ATTEND Internal Medicine
PROC: 0T9B70Z Drainage of Bladder with Drainage Device, Via Natural or Artificial Opening (ICD-10-PCS; principal; 2024-02-15)
PROC: 5A1935Z Respiratory Ventilation, Less than 24 Consecutive Hours (ICD-10-PCS; 2024-02-15)
PROC: 05H633Z Insertion of Infusion Device into Left Subclavian Vein, Percutaneous Approach (ICD-10-PCS; 2024-02-15)
PROC: 5A12012 Performance of Cardiac Output, Single, Manual (ICD-10-PCS; 2024-02-15)
PROC: 0BH17EZ Insertion of Endotracheal Airway into Trachea, Via Natural or Artificial Opening (ICD-10-PCS; 2024-02-15)
PROC: 4A133R1 Monitoring of Arterial Saturation, Peripheral, Percutaneous Approach (ICD-10-PCS; 2024-02-15)
PROC: 3E033XZ Introduction of Vasopressor into Peripheral Vein, Percutaneous Approach (ICD-10-PCS; 2024-02-15)
PROC: 5A09457 Assistance with Respiratory Ventilation, 24-96 Consecutive Hours, Continuous Positive Airway Pressure (ICD-10-PCS; 2024-02-16)
DX: J96.21 Acute and chronic respiratory failure with hypoxia (principal); K85.90 Acute pancreatitis without necrosis or infection, unspecified; I46.9 Cardiac arrest, cause unspecified; E87.0 Hyperosmolality and hypernatremia; I50.32 Chronic diastolic (congestive) heart failure; J44.1 Chronic obstructive pulmonary disease with (acute) exacerbation; E87.3 Alkalosis; J96.22 Acute and chronic respiratory failure with hypercapnia; I11.0 Hypertensive heart disease with heart failure; F41.9 Anxiety disorder, unspecified; Z87.891 Personal history of nicotine dependence; E78.5 Hyperlipidemia, unspecified; Z79.899 Other long term (current) drug therapy; Z90.49 Acquired absence of other specified parts of digestive tract; Z98.51 Tubal ligation status
CPT/HCPCS: 31500; 36415; 36416; 36556; 36600; 51702; 70450; 71045; 71275; 74177; 80048; 80053; 80306; 81001; 82805; 83605; 83690; 83735; 83880; 84100; 84484; 85025; 86850; 86900; 86901; 87040; 87149; 92950; 93005; 94002; 94003; 94640; 94660; 94760; 96361; 96365; 96366; 96374; 96375; 99292; C9113; J0171; J0282; J0456; J0696; J1120; J1650; J1815; J1940; J2704; J2920; J2930; J3010; J3475; J3490; J7050; J7512; J7620; J7626; Q9967